=== PATIENT | female | born 1995 | race Caucasian/White ===

== ENCOUNTER 2019-02-11 17:20 | Inpatient (IN) | payer BC ==
[~2019-02-11] VITALS: Ht 172.7 cm; Wt 71.2 kg
[2019-02-11] MEDS ORDERED: FIASP (17:31)
[2019-02-11] MEDS ORDERED: APIDRA SOL100 UNIT/1 SQ (17:31)
[2019-02-11] MEDS ORDERED: NOVOLIN 70/30 110 ML SC (17:32)
[2019-02-11] MEDS ORDERED: LANTUS SOL100 UNIT/1 SC (17:32)
[2019-02-11] MEDS ORDERED: CITRACAL + D E1 EACH PO (17:33)
[2019-02-11] MEDS ORDERED: ESTROGEL50 GM TP (17:33)
[2019-02-11] MEDS ORDERED: VITAMIN D31000 UNIT PO (17:33)
[2019-02-11] MEDS ORDERED: TYLENOL W/CODEI1 TAB PO (17:34)
[2019-02-11] MEDS ORDERED: [UNRECOGNIZED DRUG - OTHER] (17:35)
[2019-02-11] MEDS ORDERED: TYLENOL PM1 TAB PO (17:35)
[2019-02-11] MEDS ORDERED: UNISOM SLEEP AI25 MG PO (17:35)
[2019-02-11 18:44] LABS: BASOPHILS 0.3 % (0-2); EOSINOPHILS 1.6 % (0-7); HEMATOCRIT 38.3 % (36.0-48.0); HEMOGLOBIN 12.5 g/dL (12-16); IMMATURE GRANULOCYTES 0.1 % (0-5); LYMPHOCYTES 14.4 % (15-50); MCH 27.5 pg (26.0-34.0); MCHC 32.6 g/dL (31.0-37.0); MCV 84.4 fL (80.0-100.0); MEAN PLATELET VOLUME 9.2 fL (7.4-10.4); MONOCYTES 4.5 % (2-11); NEUTROPHILS 79.1 % (40-80); PLATELET COUNT 243 10x3/uL (130-400); RBC 4.54 10x6/uL (4.00-5.40); RDW 13.5 % (11.5-14.5); WBC 7.3 10x3/uL (4.8-10.8)
[2019-02-11 18:50] LABS: APPEARANCE CLEAR (CLEAR); BILIRUBIN NEGATIVE (NEGATIVE); COLOR STRAW (YELLOW); GLUCOSE 1000 mg/dL (NEGATIVE); KETONE MODERATE mg/dL (NEGATIVE); NITRITE NEGATIVE (NEGATIVE); PROTEIN NEGATIVE (NEGATIVE); UROBILINOGEN NORMAL (NORMAL)
[2019-02-11 18:51] LABS: BACTERIA FEW /hpf (NONE SEEN); EPITHELIAL CELLS 0-5 /hpf (0-5); RED CELLS - URINE 0-5 /hpf (0-5); WHITE CELLS - URINE RARE /hpf (0-5); YEAST OCC /hpf (NONE SEEN)
[2019-02-11 19:10] LABS: ALBUMIN 3.5 g/dL (3.4-5.0); ALKALINE PHOSPHATASE 141 U/L (46-116); ALT (SGPT) 60 U/L (10-68); AMYLASE - SERUM 17 U/L (25-115); BILIRUBIN - TOTAL 0.67 mg/dL (0.2-1.3); CALC OSMOLALITY 291 mosm/kg (275-300); CALCIUM 9.1 mg/dL (8.5-10.1); CARBON DIOXIDE 23.3 mmol/L (21.0-32.0); CHLORIDE - SERUM 100 mmol/L (98-107); CREATININE - SERUM 0.9 mg/dL (0.6-1.3); LIPASE 61 U/L (73-393); POTASSIUM - SERUM 4.7 mmol/L (3.5-5.1); SODIUM 136 mmol/L (136-145); TROPONIN-I < 0.017 ng/mL (0.000-0.060); UREA NITROGEN 22 mg/dL (7-18); eGFR NON AFRICAN AMERICAN 81 mL/min (90-120)
[2019-02-11 19:12] LABS: GLUCOSE 405 mg/dL (74-106)
[2019-02-11 22:30] VITALS: BP 113/83
--- NOTE | 2019-02-11 22:30 | NUR ---
PT ARRIVED ON UNIT VIA WHEELCHAIR ACCCOMPANIED BY ER STAFF AND FIANCE - REQUESTED BEDSIDE COMMODE - LARGE LIQUID BM NOTED AT THIS TIME. PATIENT CONNECTED TO ICU MONITORS AND ALL ALARMS ARE ON AND OPERATIONAL. PT IN PAIN 10/10 ON NUMERIC PAIN SCALE, BOTH UPPER QUAD OF ABDOMEN, SOFT TO PALPATION, NO DISTENTION OR RIGIDITY. DR. RIDER NOTIFIED OF ADMISSION NEW ORDERS RECEIVED.
[2019-02-11 23:00] VITALS: BP 110/72
[2019-02-11 23:49] VITALS: BP 116/84; BMI 23.0
[2019-02-12] VITALS (21 sets, daily range): BP systolic 102–131; BP diastolic 64–93; Ht 172.7 cm; Wt 71.2 kg
--- NOTE | 2019-02-12 01:53 | NUR ---
PATIENT REQUESTING PAIN MEDICATION AT THIS TIME VSS CPOC SEE EMAR FOR ADMINISTRATION
--- NOTE | 2019-02-12 06:22 | NUR ---
PT RESTING COMFORTABLY INSULIN DRIP INFUSING VSS CPOC
[2019-02-12 08:47] LABS: ANION GAP 17.3 mmol/L (8-16); CALCIUM 9.4 mg/dL (8.5-10.1); CARBON DIOXIDE 23.5 mmol/L (21.0-32.0); MAGNESIUM - SERUM 1.8 mg/dL (1.8-2.4)
[2019-02-12 08:49] LABS: POTASSIUM - SERUM 3.8 mmol/L (3.5-5.1)
--- NOTE | 2019-02-12 09:47 | NUR ---
0700 AWAKE ALERT ORIENTED ASSESSMENT COMPLETE DKA PROTOCOL ONGOING WITH INSULIN GTT INFUSING AT 1.8 UNITS/HOUR AND D5 1/2 ACTIVITY AD FRANKY IN ROOM
--- NOTE | 2019-02-12 10:17 | NUR ---
0730 CBS 153 ADJUSTED INSULIN GTT TO 3.72
--- NOTE | 2019-02-12 10:20 | NUR ---
0830 UP TO BSC INDEPENDENTLY VOIDED AND LIQUID STOOL NOTED CBS 98 ADJUSTED INSULIN GTT TO 1.14UNITS/HR
--- NOTE | 2019-02-12 10:24 | NUR ---
0819 ZOFRAN 4MG IV GIVEN FOR N,V
--- NOTE | 2019-02-12 10:26 | NUR ---
0831 PAIN 12/16 DIALUDID 1MG IV GIVEN
[2019-02-12 12:15] LABS: CALC OSMOLALITY 281 mosm/kg (275-300); CALCIUM 8.5 mg/dL (8.5-10.1); CARBON DIOXIDE 25.3 mmol/L (21.0-32.0); CHLORIDE - SERUM 105 mmol/L (98-107); CREATININE - SERUM 0.8 mg/dL (0.6-1.3); GLUCOSE 134 mg/dL (74-106); MAGNESIUM - SERUM 1.8 mg/dL (1.8-2.4); POTASSIUM - SERUM 4.1 mmol/L (3.5-5.1); SODIUM 141 mmol/L (136-145); UREA NITROGEN 10 mg/dL (7-18); eGFR NON AFRICAN AMERICAN > 90 mL/min (90-120)
--- NOTE | 2019-02-12 12:54 | NUR ---
1030 PAIN LEVEL 01/16 DILAUDID 1MG IV GIVEN
--- NOTE | 2019-02-12 12:54 | NUR ---
[address] RIDER OF AMNION GAP CLOSED AT 14.80 INSTRUCTED TO CONTINUE HOURLY CBS UNTIL SURGEON SEES PATIENT. UPDATED DR OF NO MORE N,V AND 2 DOSES DILAUDID GIVEN THIS AM.
--- NOTE | 2019-02-12 14:46 | NUR ---
9694 DR ROPER AT BEDSIDE FOR EVALUATION MAY GIVE PATIENT ICE CHIPS AND SIPS OF WATER. ORDERED STOOL COLLECTION
--- NOTE | 2019-02-12 15:19 | NUR ---
1500 IN BED RESTING WITH EYES CLOSED
[2019-02-12 16:28] LABS: CALC OSMOLALITY 281 mosm/kg (275-300); CALCIUM 8.3 mg/dL (8.5-10.1); CARBON DIOXIDE 26.1 mmol/L (21.0-32.0); CHLORIDE - SERUM 106 mmol/L (98-107); CREATININE - SERUM 0.7 mg/dL (0.6-1.3); GLUCOSE 118 mg/dL (74-106); MAGNESIUM - SERUM 1.8 mg/dL (1.8-2.4); POTASSIUM - SERUM 3.8 mmol/L (3.5-5.1); SODIUM 142 mmol/L (136-145); UREA NITROGEN 8 mg/dL (7-18); eGFR NON AFRICAN AMERICAN > 90 mL/min (90-120)
--- NOTE | 2019-02-12 17:22 | MORECARE ---
CASE MANAGEMENT DISCHARGE SUMMARY PATIENT: LIAM ELI UNIT: [id number] ADM DATE: 02/11/19 AGE: 23 : [birth year] SEX: F ROOM/BED: D.2306 AUTHOR: TOMAS STRINGER PHYSICIAN: REFERRING PHYSICIAN: SANDRA RIDER MD DATE OF SERVICE: 02/12/19 Discharge Plan Patient Name: LIAM ELI [facility] [facility] 1995 Planned Disposition: Home Anticipated Discharge Date: Discharge Date: Expected LOS: Initial Reviewer: [email or web address] Initial Review Date: 02/12/2019 Generated: 02/12/19 6:22 pm DCPIA - Discharge Planning Initial Assessment Updated by [email or web address]: Radha Lemus on 02/12/19 5:19 pm * Is the patient Alert and Oriented? Yes * How many steps to enter\exit or inside your home? 10-12 * PCP Dr. Davey @ [facility] * Preadmission Environment Home with Family * ADLs Independent * Equipment Glucometer * List name and contact numbers for known caregivers / representatives who currently or will assist patient after discharge: ASTRID [facility] - [phone] * Verbal permission to speak to the caregivers and representatives has been obtained from the patient. N/A * Community resources currently utilized None * Additional services required to return to the preadmission environment? No * Can the patient safely return to the preadmission environment? Yes * Has this patient been hospitalized within the prior 30 days at any hospital? Yes Patient Name: LIAM ELI Page [phone] at 1722 All edits/amendments must be made on the electronic document DICTATION DATE: 02/12/191721 FURNITURE SHAMPOOER: THANIA 02/12/191721 RPT#: [id number] DC DATE: STATUS: ADM IN [facility] [address] [place] [address] END OF REPORT
--- NOTE | 2019-02-12 17:30 | MORECARE ---
CASE MANAGEMENT DISCHARGE SUMMARY PATIENT: LIAM ELI UNIT: [id number] ADM DATE: 02/11/19 AGE: 23 : 94 SEX: F ROOM/BED: D.2306 AUTHOR: MYKEDOC PHYSICIAN: REFERRING PHYSICIAN: SANDRA RIDER MD DATE OF SERVICE: 02/12/19 Discharge Plan Patient Name: LIAM ELI Facility: [facility]:[place] : 1995 Planned Disposition: Home Anticipated Discharge Date: Discharge Date: Expected LOS: Initial Reviewer: [email or web address] Initial Review Date: 02/12/2019 Generated: 02/12/19 6:30 pm Comments DCP- Discharge Planning Updated by [email or web address]: Radha Lemus on 02/12/19 4:[address] Patient Name: LIAM ELI Admission Status: ER Accout number: [id number] Admission Date: 02-11-2019 : 1995 Admission Diagnosis:TYPE 1 DIABETES MELLITUS WITH KETOACIDOSIS WITHOUT COMA Attending: SANDRA RIDER Current LOS: 1 Anticipated DC Date: Planned Disposition: Home Primary Insurance: [employer] OUT OF STATE Discharge Planning Comments: CM met with patient to complete initial dc planning assessment. CM educated patient on the CM role and verbal consent given by patient to complete assessment. Patient lives at home with her significant other where she is independent with her care. At discharge patient plans to return home and feels this is a safe discharge. CM discussed availability of home health, rehab services, and medical equipment. Patient states she has a glucometer and supplies to check blood sugars at home. Patient will have family drive her home upon discharge. Patient denied known discharge needs at this time. CM will continue to follow and will assist as needed with dc plans/needs. Mold Stacker: Radha Lemus DCPIA - Discharge Planning Initial Assessment Updated by [email or web address]: Radha Lemus on 02/12/19 5:19 pm * Is the patient Alert and Oriented? Yes * How many steps to enter\exit or inside your home? 10-12 * PCP Dr. Davey @ [facility] * [facility] * Preadmission Environment Home with Family * ADLs Independent * Equipment Glucometer * List name and contact numbers for known caregivers / representatives who currently or will assist patient after discharge: ASTRID SINCLAIR PARTNER - [phone] * Verbal permission to speak to the caregivers and representatives has been obtained from the patient. N/A * Community resources currently utilized None * Additional services required to return to the preadmission environment? No * Can the patient safely return to the preadmission environment? Yes * Has this patient been hospitalized within the prior 30 days at any hospital? Yes Last DP export: 02/12/19 4:22 pm Patient Name: LIAM ELI Page [phone] at 1730 All edits/amendments must be made on the electronic document DICTATION DATE: 02/12/191729 SHOT BAGGER: THANIA 02/12/191729 RPT#: [id number] DC DATE: STATUS: ADM IN [facility] [address] [place] [address] END OF REPORT
--- NOTE | 2019-02-12 19:00 | NUR ---
PT ASSESSMENT COMPLETED AT THIS TIME, VSS, NO DISTRESS NOTED
--- NOTE | 2019-02-12 21:00 | NUR ---
NO CHANGES NOTED AT THIS TIME, PT WATCHING TV ON HER PHONE. VSS, NO DISTRESS NOTED
--- NOTE | 2019-02-12 23:00 | NUR ---
PT REASSESSMENT COMPLETED AT THIS TIME, NO CHANGES NOTED
[2019-02-13] VITALS (13 sets, daily range): BP systolic 110–142; BP diastolic 61–87
--- NOTE | 2019-02-13 01:00 | NUR ---
NO CHANGES NOTED, VSS, NO DISTRESS NOTED
[2019-02-13 04:18] LABS: BASOPHILS 0 % (0-2); EOSINOPHILS 7.1 % (0-7); HEMATOCRIT 35.6 % (36.0-48.0); HEMOGLOBIN 11.6 g/dL (12-16); IMMATURE GRANULOCYTES 0.3 % (0-5); LYMPHOCYTES 47.4 % (15-50); MCH 27.4 pg (26.0-34.0); MCHC 32.6 g/dL (31.0-37.0); MCV 84.2 fL (80.0-100.0); MEAN PLATELET VOLUME 8.6 fL (7.4-10.4); MONOCYTES 10.8 % (2-11); NEUTROPHILS 34.4 % (40-80); PLATELET COUNT 212 10x3/uL (130-400); RBC 4.23 10x6/uL (4.00-5.40); RDW 13.4 % (11.5-14.5)
[2019-02-13 04:19] LABS: WBC 3.2 10x3/uL (4.8-10.8)
[2019-02-13 04:31] LABS: ALKALINE PHOSPHATASE 125 U/L (46-116); ALT (SGPT) 58 U/L (10-68); BILIRUBIN - TOTAL 0.51 mg/dL (0.2-1.3); CALCIUM 8.1 mg/dL (8.5-10.1); CARBON DIOXIDE 26.2 mmol/L (21.0-32.0); CHLORIDE - SERUM 104 mmol/L (98-107); POTASSIUM - SERUM 3.6 mmol/L (3.5-5.1); PROTEIN - SERUM 6.2 g/dL (6.4-8.2); SODIUM 139 mmol/L (136-145)
[2019-02-13 04:32] LABS: CALC OSMOLALITY 280 mosm/kg (275-300); CREATININE - SERUM 0.5 mg/dL (0.6-1.3); GLUCOSE 204 mg/dL (74-106); UREA NITROGEN 5 mg/dL (7-18); eGFR NON AFRICAN AMERICAN > 90 mL/min (90-120)
--- NOTE | 2019-02-13 05:00 | NUR ---
PT RESTING WITH EYES CLOSED, RESP EVEN NON LABORED. JUNE, NO DISTRESS NOTED.
--- NOTE | 2019-02-13 08:04 | NUR ---
0700 AWAKE ALERT IN BED PLAYING ON PHONE INSULIN INFUSION WITH CBS EVERY HOUR CURRENT RATE 0.3UNITS/HR NS INFUSING AT 100ML/HR TO RIGHT FOREARM IV. SITE SATISFACTORY REMAINS NPO EXCEPT SIPS WATER AND ICE CHIPS. ASSESSMENT COMPLETE
--- NOTE | 2019-02-13 08:08 | NUR ---
0800 C/O PAIN 01/16 DILAUDID 1MG IV GIVEN. REFUSES BATH STATES SHE WANTS TO GO TO SLEEP NOW
--- NOTE | 2019-02-13 13:11 | NUR ---
0900 COLLECTED STOOL SPECIMEN AND SENT TO LAB
--- NOTE | 2019-02-13 13:11 | NUR ---
1100 STOPPED INSULIN GTT PLACED ON SLIDING SCALE
--- NOTE | 2019-02-13 13:12 | NUR ---
1200 CLEAR LIQUID DIET PROVIDED
[2019-02-13 13:50] LABS: CALC OSMOLALITY 284 mosm/kg (275-300); CALCIUM 7.9 mg/dL (8.5-10.1); CHLORIDE - SERUM 105 mmol/L (98-107); CREATININE - SERUM 0.8 mg/dL (0.6-1.3); GLUCOSE 274 mg/dL (74-106); POTASSIUM - SERUM 3.9 mmol/L (3.5-5.1); SODIUM 139 mmol/L (136-145); UREA NITROGEN 5 mg/dL (7-18); eGFR NON AFRICAN AMERICAN > 90 mL/min (90-120)
--- NOTE | 2019-02-13 16:48 | NUR ---
1615 REPORT CALLED TO MED 3
--- NOTE | 2019-02-13 16:48 | NUR ---
2613 TRANSPORTED VIA WHEELCHAIR TO [place] [id number]
--- NOTE | 2019-02-13 18:55 | NUR ---
PATIENT RESTING IN BED AND DENIES NEEDS AT THIS TIME. BED IN LOWEST POSITION AND CALL LIGHT WITHIN REACH. ENCOURAGED THE PATIENT TO CALL IF SHE HAS NEEDS. WILL CONTINUE TO MONITOR.
[2019-02-14 00:17] VITALS: BP 136/90
--- NOTE | 2019-02-14 00:20 | NUR ---
SWELLING AND REDNESS NOTED AT PATIENT'S IV SITE. REMOVED PIV WITH TIP INTACT FROM PATIENT'S RIGHT FA
--- NOTE | 2019-02-14 01:00 | NUR ---
HEDY MATHEWS ATTEMPTED TO GAIN IV ACCESS ON PATIENT
--- NOTE | 2019-02-14 01:30 | NUR ---
HEDY MONSALVE ATTEMPTED TO GAIN IV ACCESS ON PATIENT
--- NOTE | 2019-02-14 01:40 | NUR ---
SPOKE WITH KIMMY, CAROLA IN REGARDS TO PATIENT'S IV ACCESS. KIMMY STATED THAT HE WOULD ASK IF ANYONE WAS ABLE TO COME DOWN.
--- NOTE | 2019-02-14 03:29 | NUR ---
SPOKE WITH LAN SUPPORT SPECIALIST IN REGARDS TO IV ACCESS FOR PATIENT. STATED PARTHA, RN WOULD BE DOWN TO ATTEMPT AN IV ON THE PATIENT
[2019-02-14 04:00] VITALS: BP 122/76
[2019-02-14 06:51] LABS: BASOPHILS 0.6 % (0-2); HEMOGLOBIN 10.7 g/dL (12-16); IMMATURE GRANULOCYTES 0.3 % (0-5); LYMPHOCYTES 47.8 % (15-50); MCH 27.6 pg (26.0-34.0); MCHC 32.4 g/dL (31.0-37.0); MCV 85.1 fL (80.0-100.0); MONOCYTES 8.8 % (2-11); NEUTROPHILS 37.5 % (40-80); PLATELET COUNT 190 10x3/uL (130-400); RBC 3.88 10x6/uL (4.00-5.40); RDW 13.5 % (11.5-14.5); WBC 3.4 10x3/uL (4.8-10.8)
[2019-02-14 07:07] LABS: CALC OSMOLALITY 282 mosm/kg (275-300); CALCIUM 8.4 mg/dL (8.5-10.1); CARBON DIOXIDE 27.4 mmol/L (21.0-32.0); CHLORIDE - SERUM 107 mmol/L (98-107); CREATININE - SERUM 0.6 mg/dL (0.6-1.3); POTASSIUM - SERUM 3.4 mmol/L (3.5-5.1); SODIUM 142 mmol/L (136-145); UREA NITROGEN 4 mg/dL (7-18); eGFR NON AFRICAN AMERICAN > 90 mL/min (90-120)
[2019-02-14 07:08] LABS: GLUCOSE 148 mg/dL (74-106)
[2019-02-14 08:10] VITALS: BP 120/71
--- NOTE | 2019-02-14 08:20 | NUR ---
PT ALERT X 4. BREATH SOUNDS CLEAR BILAT. IV TO LEFT WRIST, PATENT DRESSING CDI. ABDOMEN TENDER NON-DISTENDED AND SOFT. PT REPORTING PAIN OF 8/10, MEDICATED PER ORDERS, WILL MONITOR. BED LOW, CALL LIGHT IN REACH. NO OTHER NEEDS AT THIS TIME.
[2019-02-14 12:11] VITALS: BP 136/80
[2019-02-14 19:51] VITALS: BP 139/87
--- NOTE | 2019-02-14 19:53 | NUR ---
PATIENT RESTING IN BED WITH GUEST AND DENIES NEEDS AT THIS TIME. VSS. BED IN LOWEST POSITION AND CALL LIGHT WITHIN REACH. ENCOURAGED THE PATIENT TO CALL IF SHE HAS NEEDS. WILL CONTINUE TO MONITOR.
[2019-02-14 23:42] VITALS: BP 128/76
[2019-02-15 03:36] VITALS: BP 112/72
[2019-02-15 08:00] VITALS: BP 137/92
--- NOTE | 2019-02-15 09:55 | NUR ---
THE PATIENT APPEARED TO BE SLEEPING BUT EASILY AWOKE WHEN STAFF ENTERED HER ROOM. BED IS IN THE LOW POSITION WITH SIDERAILSX 2 AND CALL LIGHT WITHIN REACH. THE PATIENT WAS EDUCATED ON THE USE OF A CALL LIGHT AND DEMONSTRATES UNDERSTANDING VIA TEACHBACK METHOD. THE PATIENT APPEARS COMFORTABLE WITH NO QUESTIONS OR CONCERNS AT THIS TIME.
[2019-02-15 11:00] VITALS: BP 119/80
--- NOTE | 2019-02-15 12:58 | NUR ---
Nutrition Follow-up: Patient states that she is tolerating diet advancement to full-liquid. States she is allergic to artificial sweeteners. Does not want Glucerna. Diet: Full-liquid PO not recorded Labs reviewed Significant meds: lantus, SSI, MOM +BM Wt: 157# (02/15/19) Continue to ADAT to Diabetic diet. RD available for nutrition support if needed. RD Following
[2019-02-15 16:00] VITALS: BP 131/81
--- NOTE | 2019-02-15 19:55 | NUR ---
PATIENT RESTING IN BED AND DENIES NEEDS AT THIS TIME. REITERATED TO THE PATIENT THAT SHE CANNOT HAVE ANYTHING BY MOUTH AFTER MIDNIGHT AND THAT SHE CANNOT HAVE PAIN MEDICATION AFTER MIDNIGHT. PATIENT VERBALIZED UNDERSTANDING. ENCOURAGED THE PATIENT TO CALL IF SHE HAS NEEDS. WILL CONTINUE TO MONITOR.
[2019-02-15 20:18] VITALS: BP 134/93
[2019-02-16] VITALS: BP 134/87
[2019-02-16 04:00] VITALS: BP 109/76
[2019-02-16 07:15] LABS: BASOPHILS 0.6 % (0-2); EOSINOPHILS 4.5 % (0-7); HEMATOCRIT 31.5 % (36.0-48.0); HEMOGLOBIN 10.3 g/dL (12-16); MCH 27.2 pg (26.0-34.0); MCHC 32.7 g/dL (31.0-37.0); MEAN PLATELET VOLUME 9.5 fL (7.4-10.4); MONOCYTES 9.1 % (2-11); NEUTROPHILS 43.8 % (40-80); PLATELET COUNT 203 10x3/uL (130-400); RBC 3.79 10x6/uL (4.00-5.40); RDW 13.3 % (11.5-14.5); WBC 3.3 10x3/uL (4.8-10.8)
[2019-02-16 07:16] LABS: MCV 83.1 fL (80.0-100.0)
[2019-02-16 07:23] LABS: CALC OSMOLALITY 283 mosm/kg (275-300); CALCIUM 8.2 mg/dL (8.5-10.1); CARBON DIOXIDE 30.2 mmol/L (21.0-32.0); CHLORIDE - SERUM 106 mmol/L (98-107); CREATININE - SERUM 0.6 mg/dL (0.6-1.3); GLUCOSE 138 mg/dL (74-106); POTASSIUM - SERUM 3.4 mmol/L (3.5-5.1); SODIUM 143 mmol/L (136-145); UREA NITROGEN 4 mg/dL (7-18); eGFR NON AFRICAN AMERICAN > 90 mL/min (90-120)
--- NOTE | 2019-02-16 09:30 | NUR ---
PT ALERT X 4. BREATH SOUNDS CLEAR BILAT. ABDOMEN TENDER, NON-DISTENDED. IV TO LEFT WRIST, PATENT, DRESSING CDI. PT REPORTING PAIN OF 7/10 MEDICATED PER ORDERS, WILL MONITOR. BED LOW, CALL LIGHT IN REACH. NO OTHER NEEDS AT THIS TIME.
[2019-02-16] MEDS ORDERED: ZOFRAN4 MG PO (11:42)
--- NOTE | 2019-02-16 15:29 | NUR ---
DISCHARGE PAPERWORK SIGNED, ALL QUESTIONS ANSWERED. IV TO LEFT WRIST DC'D, TIP INTACT. ESCORTED OUT BY WHEELCHAIR.
--- NOTE | 2019-02-17 08:04 | MORECARE ---
CASE MANAGEMENT DISCHARGE SUMMARY PATIENT: LIAM ELI UNIT: [id number] ADM DATE: 02/11/19 AGE: 23 : [birth year] SEX: F ROOM/BED: D.1204 AUTHOR: MYKE,DOC PHYSICIAN: REFERRING PHYSICIAN: SANDRA RIDER MD DATE OF SERVICE: 02/17/19 Discharge Plan Patient Name: LIAM ELI Facility: [facility]:[place] : 1995 Planned Disposition: Home Anticipated Discharge Date: Discharge Date: 02/16/2019 Expected LOS: Initial Reviewer: [email or web address] Initial Review Date: 02/12/2019 Generated: 02/17/19 9:04 am DCP- Discharge Planning Updated by [email or web address]: Radha Lemus on 02/12/19 4:[address] Patient Name: LIAM ELI Admission Status: ER Accout number: [id number] Admission Date: 02-11-2019 : 1995 Admission Diagnosis:TYPE 1 DIABETES MELLITUS WITH KETOACIDOSIS WITHOUT COMA Attending: SANDRA RIDER Current LOS: 1 Anticipated DC Date: Planned Disposition: Home Primary Insurance: [employer] OUT OF STATE Discharge Planning Comments: CM met with patient to complete initial dc planning assessment. CM educated patient on the CM role and verbal consent given by patient to complete assessment. Patient lives at home with her significant other where she is independent with her care. At discharge patient plans to return home and feels this is a safe discharge. CM discussed availability of home health, rehab services, and medical equipment. Patient states she has a glucometer and supplies to check blood sugars at home. Patient will have family drive her home upon discharge. Patient denied known discharge needs at this time. CM will continue to follow and will assist as needed with dc plans/needs. Turbine Inspector: Radha Lemus DCPIA - Discharge Planning Initial Assessment Updated by [email or web address]: Radha Lemus on 02/12/19 5:19 pm * Is the patient Alert and Oriented? Yes * How many steps to enter\exit or inside your home? 10-12 * PCP Dr. Davey @ [facility] * [facility] * Preadmission Environment Home with Family * ADLs Independent * Equipment Glucometer * List name and contact numbers for known caregivers / representatives who currently or will assist patient after discharge: ASTRID SINCLAIR PARTNER - [phone] * Verbal permission to speak to the caregivers and representatives has been obtained from the patient. N/A * Community resources currently utilized None * Additional services required to return to the preadmission environment? No * Can the patient safely return to the preadmission environment? Yes * Has this patient been hospitalized within the prior 30 days at any hospital? Yes Last DP export: 02/12/19 4:30 pm Patient Name: LIAM ELI Page [phone] at 0804 All edits/amendments must be made on the electronic document DICTATION DATE: 02/17/19803 MAT CLEANING MACHINE OPERATOR: THANIA 02/17/19803 RPT#: [id number] DC DATE:02/16/19 STATUS: DIS IN [facility] [address] [place] [address] END OF REPORT
== END 2019-02-16 16:00 | disposition home or self-care (01) | DRG 638 ==
LOC: D.ER 17:20 → D.M3 21:32 → D.ICU 21:32 → D.M3 02-13 16:42
PROVIDERS: Family Medicine; ADMIT Family Medicine; ATTEND Family Medicine
DX: E10.10 Type 1 diabetes mellitus with ketoacidosis without coma (principal); K56.609 Unspecified intestinal obstruction, unspecified as to partial versus complete obstruction; M32.9 Systemic lupus erythematosus, unspecified; E20.9 Hypoparathyroidism, unspecified; R11.2 Nausea with vomiting, unspecified; K52.9 Noninfective gastroenteritis and colitis, unspecified

== ENCOUNTER 2019-02-19 14:13 | Inpatient (IN) | payer BC ==
[~2019-02-19] VITALS: Ht 172.7 cm; Wt 68.0 kg
[~2019-02-19 14:13] MED LIST: APIDRA SOL100 UNIT/1 SQ; CITRACAL + D E1 EACH PO; ESTROGEL50 GM TP; FIASP; LANTUS SOL100 UNIT/1 SC; NOVOLIN 70/30 110 ML SC; TYLENOL PM1 TAB PO; TYLENOL W/CODEI1 TAB PO; UNISOM SLEEP AI25 MG PO; VITAMIN D31000 UNIT PO; ZOFRAN4 MG PO; [UNRECOGNIZED DRUG - OTHER]
[2019-02-19 14:55] LABS: BASOPHILS 0.3 % (0-2); EOSINOPHILS 1.5 % (0-7); HEMATOCRIT 39.6 % (36.0-48.0); HEMOGLOBIN 13.6 g/dL (12-16); IMMATURE GRANULOCYTES 0.4 % (0-5); LYMPHOCYTES 13.7 % (15-50); MCH 28.1 pg (26.0-34.0); MCHC 34.3 g/dL (31.0-37.0); MCV 81.8 fL (80.0-100.0); MEAN PLATELET VOLUME 9.3 fL (7.4-10.4); MONOCYTES 6.3 % (2-11); NEUTROPHILS 77.8 % (40-80); RBC 4.84 10x6/uL (4.00-5.40); RDW 13.2 % (11.5-14.5); WBC 10.8 10x3/uL (4.8-10.8)
[2019-02-19 15:04] LABS: PLATELET COUNT 335 10x3/uL (130-400)
[2019-02-19 15:13] LABS: ALKALINE PHOSPHATASE 192 U/L (46-116); ALT (SGPT) 83 U/L (10-68); AMYLASE - SERUM 17 U/L (25-115); BILIRUBIN - TOTAL 1.17 mg/dL (0.2-1.3); CHLORIDE - SERUM 98 mmol/L (98-107); CREATININE - SERUM 0.9 mg/dL (0.6-1.3); LIPASE 90 U/L (73-393); POTASSIUM - SERUM 4.1 mmol/L (3.5-5.1); PROTEIN - SERUM 8.3 g/dL (6.4-8.2); SODIUM 133 mmol/L (136-145); UREA NITROGEN 14 mg/dL (7-18); eGFR NON AFRICAN AMERICAN 81 mL/min (90-120)
[2019-02-19 15:17] LABS: CALC OSMOLALITY 285 mosm/kg (275-300); GLUCOSE 437 mg/dL (74-106); TROPONIN-I < 0.017 ng/mL (0.000-0.060)
--- NOTE | 2019-02-19 15:22 | NUR ---
NOTIFIED PROVIDERS OF CRITICAL GLUCOSE OF 437. PATIENT STABLE.
[2019-02-19 18:02] LABS: APPEARANCE CLEAR (CLEAR); BILIRUBIN NEGATIVE (NEGATIVE); COLOR STRAW (YELLOW); GLUCOSE 1000 mg/dL (NEGATIVE); KETONE LARGE mg/dL (NEGATIVE); NITRITE NEGATIVE (NEGATIVE); PROTEIN NEGATIVE (NEGATIVE); UROBILINOGEN NORMAL (NORMAL)
[2019-02-19 21:50] VITALS: BP 130/94
--- NOTE | 2019-02-19 23:14 | NUR ---
FSBS 322
--- NOTE | 2019-02-20 01:00 | NUR ---
PT ARRIVED TO THE FLOOR. ALERT AND ORIENTED. NO SIGNS OF DISTRESS. BREATHING EVEN AND UNLABORED. IV SITE RT EXTERNAL JUGULAR. DRESSING CLEAN DRY AND INTACT. NO SIGNS OF INFECTION. SKIN CLEAN DRY AND INTACT. WILL CONTINUE PLAN OF CARE. CALL LIGHT IN REACH. BED LOWERED AND LOCKED.
[2019-02-20 03:34] VITALS: BP 103/56; BMI 22.7
[2019-02-20 04:00] VITALS: BP 102/54
[2019-02-20 04:43] LABS: BASOPHILS 0.4 % (0-2); EOSINOPHILS 5.1 % (0-7); HEMATOCRIT 35.8 % (36.0-48.0); HEMOGLOBIN 11.9 g/dL (12-16); IMMATURE GRANULOCYTES 0.2 % (0-5); LYMPHOCYTES 30.5 % (15-50); MCH 27.7 pg (26.0-34.0); MCHC 33.2 g/dL (31.0-37.0); MCV 83.4 fL (80.0-100.0); MEAN PLATELET VOLUME 9.2 fL (7.4-10.4); NEUTROPHILS 52.8 % (40-80); PLATELET COUNT 279 10x3/uL (130-400); RBC 4.29 10x6/uL (4.00-5.40); RDW 13.7 % (11.5-14.5)
[2019-02-20 04:44] LABS: WBC 5.3 10x3/uL (4.8-10.8)
[2019-02-20 04:52] LABS: CALC OSMOLALITY 288 mosm/kg (275-300); CALCIUM 9.2 mg/dL (8.5-10.1); CARBON DIOXIDE 23.5 mmol/L (21.0-32.0); CHLORIDE - SERUM 102 mmol/L (98-107); CREATININE - SERUM 0.8 mg/dL (0.6-1.3); MAGNESIUM - SERUM 1.8 mg/dL (1.8-2.4); PHOSPHOROUS 4.4 mg/dL (2.5-4.9); POTASSIUM - SERUM 4.5 mmol/L (3.5-5.1); SODIUM 137 mmol/L (136-145); UREA NITROGEN 15 mg/dL (7-18); eGFR NON AFRICAN AMERICAN > 90 mL/min (90-120)
[2019-02-20 04:56] LABS: GLUCOSE 351 mg/dL (74-106)
[2019-02-20 08:53] VITALS: BP 105/71
--- NOTE | 2019-02-20 09:35 | NUR ---
I have reviewed this patient and I concur with the Shift Assessment completed by the Licensed Practical Nurse today this shift.
[2019-02-20 13:54] VITALS: BP 110/65
[2019-02-20 18:25] VITALS: BP 111/71
[2019-02-20 20:00] VITALS: BP 110/75
[2019-02-21] VITALS: BP 105/71
[2019-02-21 06:13] LABS: UDS - AMPHET NEGATIVE QUAL (NEGATIVE); UDS - BARB NEGATIVE QUAL (NEGATIVE); UDS - BENZO NEGATIVE QUAL (NEGATIVE); UDS - COCAINE NEGATIVE QUAL (NEGATIVE); UDS - OPIATE POSITIVE QUAL (NEGATIVE); UDS - PCP NEGATIVE QUAL (NEGATIVE); UDS - THC NEGATIVE QUAL (NEGATIVE)
[2019-02-21 07:30] VITALS: BP 107/69
--- NOTE | 2019-02-21 07:30 | NUR ---
RESTING IN BED WITH EYES CLOSED. OPENED THEM WHEN I ENTERED THE ROOM. DENIES ANY NEEDS AT PRESENT TIME. PAIN LEVEL IS AT 5 RIGHT NOW BUT NOT YET TIME FOR PAIN MED. STATES SHE DOES WANT IT WHEN IT IS DUE. ASSESSMENT COMPLETED AND WILL CONTINUE POC. IV PATENT TO RIGHT EXT JUGULAR WITHOUT REDNESS OR EDEMA. NO REQUESTS VOICED.
[2019-02-21 11:30] VITALS: BP 108/70
--- NOTE | 2019-02-21 13:23 | NUR ---
I have reviewed this patient and I concur with the Shift Assessment completed by the Licensed Practical Nurse today this shift.
[2019-02-21 15:30] VITALS: BP 118/83
--- NOTE | 2019-02-21 19:45 | NUR ---
PT SITTING UP IN BED ALERT AND ORIENTED X4. PT COMPLAINS OF 7/10 ABDOMINAL PAIN. PRN MEDICATION GIVEN. VITALS STABLE. BED LOW CALL LIGHT WITHIN REACH. WILL CONTINUE TO MONITOR.
[2019-02-21 20:00] VITALS: BP 118/76
--- NOTE | 2019-02-21 23:37 | NUR ---
PT COMPLAINS OF PAIN IN ABDOMEN 01/16. PRN PAIN MEDS GIVEN WELL A CUP OF CHICKEN BROTH AND 2 APPLE JUICES. NO S/S OF DISTRESS. VITALS STABLE AT THIS TIME. BED LOW CALL LIGHT WITHIN REACH. WILL CONTINUE TO MONITOR.
[2019-02-22] VITALS: BP 120/76
--- NOTE | 2019-02-22 04:05 | NUR ---
PT IN BED ALERT AND ORIENTED WATCHING MOVIE ON LAPTOP. NO S/S OF DISTRESS AT THIS TIME. BED LOW CALL LIGHT WITHIN REACH. WILL CONTINUE TO MONITOR.
[2019-02-22 04:30] VITALS: BP 113/79
[2019-02-22 04:41] LABS: BASOPHILS 0.6 % (0-2); HEMATOCRIT 38.5 % (36.0-48.0); HEMOGLOBIN 12.9 g/dL (12-16); IMMATURE GRANULOCYTES 0.6 % (0-5); LYMPHOCYTES 43.8 % (15-50); MCH 27.3 pg (26.0-34.0); MCHC 33.5 g/dL (31.0-37.0); MCV 81.6 fL (80.0-100.0); PLATELET COUNT 301 10x3/uL (130-400); RBC 4.72 10x6/uL (4.00-5.40)
[2019-02-22 04:50] LABS: CALCIUM 8.7 mg/dL (8.5-10.1); CARBON DIOXIDE 26.4 mmol/L (21.0-32.0); CHLORIDE - SERUM 103 mmol/L (98-107); CREATININE - SERUM 0.8 mg/dL (0.6-1.3); SODIUM 141 mmol/L (136-145); eGFR NON AFRICAN AMERICAN > 90 mL/min (90-120)
[2019-02-22 04:54] LABS: CALC OSMOLALITY 281 mosm/kg (275-300); GLUCOSE 159 mg/dL (74-106); POTASSIUM - SERUM 3.4 mmol/L (3.5-5.1); UREA NITROGEN 8 mg/dL (7-18)
--- NOTE | 2019-02-22 06:42 | NUR ---
I have reviewed this patient and I concur with the Shift Assessment completed by the Licensed Practical Nurse today this shift.
--- NOTE | 2019-02-22 07:37 | NUR ---
GAVE 0.5MG OF DILAUDID FOR PAIN LEVEL OF 7/10. PT IN BED, WATCHING SOMETHING ON HER LAPTOP, DENIES ANY OTHER NEEDS AT THIS TIME. NS INFUSING AT KVO TO RT EJ. CALL LIGHT IN REACH, NAD NOTED, WILL CONTINUE TO MONITOR.
[2019-02-22 08:30] VITALS: BP 111/70
--- NOTE | 2019-02-22 09:58 | NUR ---
BLOOD SUGAR OF 134, 30UNITS OF LANTUS GIVEN PER ORDERS. PROFESSOR OF PSYCHOLOGY AT BEDSIDE, PT DENIES ANY NEEDS AT THIS TIME, CALL LIGHT IN REACH, NAD NOTED, WILL CONTINUE TO MONITOR.
--- NOTE | 2019-02-22 11:38 | NUR ---
GAVE 0.5MG OF DILAUDID FOR PAIN LEVEL OF 6/10. PT DENIES ANY OTHER NEEDS AT THIS TIME. CALL LIGHT IN REACH, NAD NOTED, WILL CONITNUE TO MONITOR.
[2019-02-22 12:03] VITALS: Ht 172.7 cm; Wt 68.0 kg
[2019-02-22 13:04] VITALS: BP 107/74
[2019-02-22] MEDS ORDERED: FLAGYL500 MG PO (14:37)
[2019-02-22] MEDS ORDERED: LEVOFLOXACIN500 MG PO (14:37)
--- NOTE | 2019-02-22 16:12 | MORECARE ---
CASE MANAGEMENT DISCHARGE SUMMARY PATIENT: LIAM ELI UNIT: [id number] ADM DATE: 02/19/19 AGE: 23 : [birth year] SEX: F ROOM/BED: D.2108 AUTHOR: TOMAS STRINGER PHYSICIAN: REFERRING PHYSICIAN: NIKITA WILHELM MD DATE OF SERVICE: 02/22/19 Discharge Plan Patient Name: LIAM ELI Facility: [facility]:[place] : 1995 Planned Disposition: Home Anticipated Discharge Date: 02/22/19 Discharge Date: Expected LOS: 3 Initial Reviewer: [email or web address] Initial Review Date: 02/22/2019 Generated: 02/22/19 5:12 pm DCPIA - Discharge Planning Initial Assessment Updated by [email or web address]: John Smith on 02/22/19 4:07 pm * Is the patient Alert and Oriented? Yes * How many steps to enter\exit or inside your home? 12 * PCP DR. SOLER AT [facility] * [facility] * Preadmission Environment Home with Family * ADLs Independent * Equipment Glucometer * Other Equipment NO MEDICAL EQUIPMENT PROVIDER PREFERENCE * List name and contact numbers for known caregivers / representatives who currently or will assist patient after discharge: ASTRID ESCUDERO, LIFE PARTNER, * Verbal permission to speak to the caregivers and representatives has been obtained from the patient. Yes * Community resources currently utilized None * Please name any agencies selected above. NONE * Additional services required to return to the preadmission environment? No * Can the patient safely return to the preadmission environment? Yes * Has this patient been hospitalized within the prior 30 days at any hospital? No Patient Name: LIAM ELI Page [phone] at 1612 All edits/amendments must be made on the electronic document DICTATION DATE: 02/22/19 161 DIRECTOR OF PROFESSIONAL SERVICES: THANIA 02/22/19 161 RPT#: [id number] DC DATE: STATUS: ADM IN [facility] [address] [place] [address] END OF REPORT
--- NOTE | 2019-02-22 16:28 | NUR ---
PROVIDED VERBAL AND WRITTEN DISCHARGE TEACHING, PT VERBAILZED UNDERSTANDING REGARDING TEACHING. D/C RT EJ IV WITH CATHETER TIP INTACT. PT LEFT UNIT VIA WHEELCHAIR, WITH ALL BELONGINGS, ACCOMPANIED BY MALE FRIEND. NAD NOTED.
--- NOTE | 2019-02-22 16:32 | MORECARE ---
CASE MANAGEMENT DISCHARGE SUMMARY PATIENT: LIAM ELI UNIT: [id number] ADM DATE: 02/19/19 AGE: 23 : [birth year] SEX: F ROOM/BED: D.2107 AUTHOR: MYKE,DOC PHYSICIAN: REFERRING PHYSICIAN: NIKITA WILHELM MD DATE OF SERVICE: 02/22/19 Discharge Plan Patient Name: LIAM ELI Facility: [facility]:[place] : 1995 Planned Disposition: Home Anticipated Discharge Date: 02/22/19 Discharge Date: 02/22/2019 Expected LOS: 3 Initial Reviewer: [email or web address] Initial Review Date: 02/22/2019 Generated: 02/22/19 5:32 pm Comments DCP- Discharge Planning Updated by [email or web address]: John Smith on 02/22/19 3:[address] Patient Name: LIAM ELI Admission Status: ER Accout number: [id number] Admission Date: 02-19-2019 : 1995 Admission Diagnosis: Attending: NIKITA WILHELM Current LOS: 3 Anticipated DC Date: 02-22-2019 Planned Disposition: Home Primary Insurance: [employer] OUT OF STATE Discharge Planning Comments: CM MET WITH PT AND SIGNFICANT OTHER IN ROOM TO DISCUSS DISCHARGE PLANNING AND NEEDS. LIAM ELI provided verbal consent to discuss current and ongoing needs with/in the presence of: SIGNFICANT OTHERASTRID. :PT REPORTS LIVING AT HOME INDEPENDENTLY WITH HER SIGNFICANT OTHER. PT HAS GLUCOMETER AND NO MEDICAL EQUIPMENT PROVIDER PREFERENCE. PT HAS NO OUTSIDE SERVICES ASSISTING IN THE HOME. CM DISCUSSED AVAILABILITY OF HOME HEALTH, REHAB SERVICES AND MEDICAL EQUIPMENT. PT DENIES DISCHARGE NEEDS, REPORTS HER SIGNIFICANT OTHER IS HERE AND WILL PICK HER UP FOR DISCHARGE HOME. Medical Program Specialist: John Smith DCPIA - Discharge Planning Initial Assessment Updated by [email or web address]: John Smith on 02/22/19 4:07 pm * Is the patient Alert and Oriented? Yes * How many steps to enter\exit or inside your home? 12 * PCP DR. SOLER AT [facility] * [facility] * Preadmission Environment Home with Family * ADLs Independent * Equipment Glucometer * Other Equipment NO MEDICAL EQUIPMENT PROVIDER PREFERENCE * List name and contact numbers for known caregivers / representatives who currently or will assist patient after discharge: ASTRID ESCUDERO, LIFE PARTNER, * Verbal permission to speak to the caregivers and representatives has been obtained from the patient. Yes * Community resources currently utilized None * Please name any agencies selected above. NONE * Additional services required to return to the preadmission environment? No * Can the patient safely return to the preadmission environment? Yes * Has this patient been hospitalized within the prior 30 days at any hospital? No Last DP export: 02/22/19 3:12 p Patient Name: LIAM ELI Page [phone] at 1632 All edits/amendments must be made on the electronic document DICTATION DATE: 02/22/191631 OPTOMETRIC TECH: THANIA 02/22/191631 RPT#: [id number] DC DATE:02/22/19 STATUS: DIS IN [facility] [address] [place] [address] END OF REPORT
== END 2019-02-22 16:29 | disposition home or self-care (01) | DRG 74 ==
LOC: D.ER 14:13 → D.M2 23:40
PROVIDERS: Family Medicine; ADMIT Internal Medicine Nephrology; ATTEND Internal Medicine Nephrology
DX: E10.43 Type 1 diabetes mellitus with diabetic autonomic (poly)neuropathy (principal); K52.9 Noninfective gastroenteritis and colitis, unspecified; K31.84 Gastroparesis; M32.9 Systemic lupus erythematosus, unspecified; R16.1 Splenomegaly, not elsewhere classified; G43.909 Migraine, unspecified, not intractable, without status migrainosus; E31.0 Autoimmune polyglandular failure

== ENCOUNTER 2019-03-30 12:14 | Emergency (ER) | payer BC ==
[~2019-03-30] VITALS: Ht 172.7 cm; Wt 68.2 kg
[~2019-03-30 12:14] MED LIST changes: +FLAGYL500 MG PO; +LEVOFLOXACIN500 MG PO
[2019-03-30 12:21] VITALS: Ht 172.7 cm; Wt 68.2 kg
[2019-03-30] MEDS ORDERED: MELATONIN10 M1 PO (12:25)
[2019-03-30] MEDS ORDERED: TRAZODONE HCL150 MG PO (12:25)
[2019-03-30 13:12] LABS: APPEARANCE CLEAR (CLEAR); BILIRUBIN NEGATIVE (NEGATIVE); COLOR YELLOW (YELLOW); GLUCOSE NEGATIVE (NEGATIVE); KETONE NEGATIVE (NEGATIVE); NITRITE NEGATIVE (NEGATIVE); PROTEIN NEGATIVE (NEGATIVE); SPECIFIC GRAVITY 1.015 (1.005-1.020); UROBILINOGEN NORMAL (NORMAL)
[2019-03-30 13:20] LABS: BACTERIA FEW /hpf (NEGATIVE); EPITHELIAL CELLS 0-5 /hpf (0-5); RED CELLS - URINE RARE /hpf (0-5); WHITE CELLS - URINE 0-5 /hpf (NEGATIVE)
[2019-03-30 13:21] LABS: MUCUS <1+ /lpf (NONE SEEN)
[2019-03-30 13:28] LABS: CALC OSMOLALITY 275 mosm/kg (275-300); CALCIUM 9.4 mg/dL (8.5-10.1); CARBON DIOXIDE 21.4 mmol/L (21.0-32.0); CHLORIDE - SERUM 102 mmol/L (98-107); CREATININE - SERUM 0.9 mg/dL (0.6-1.3); GLUCOSE 124 mg/dL (74-106); POTASSIUM - SERUM 3.7 mmol/L (3.5-5.1); SODIUM 137 mmol/L (136-145); UREA NITROGEN 15 mg/dL (7-18); eGFR NON AFRICAN AMERICAN 81 mL/min (90-120)
[2019-03-30 13:30] LABS: BASOPHILS 0.3 % (0-2); EOSINOPHILS 1.4 % (0-7); HEMATOCRIT 39.1 % (36.0-48.0); HEMOGLOBIN 12.6 g/dL (12-16); IMMATURE GRANULOCYTES 0.2 % (0-5); LYMPHOCYTES 18.6 % (15-50); MCH 27.8 pg (26.0-34.0); MCHC 32.2 g/dL (31.0-37.0); MCV 86.1 fL (80.0-100.0); MEAN PLATELET VOLUME 9.1 fL (7.4-10.4); MONOCYTES 4.2 % (2-11); NEUTROPHILS 75.3 % (40-80); PLATELET COUNT 297 10x3/uL (130-400); RBC 4.54 10x6/uL (4.00-5.40); RDW 12.9 % (11.5-14.5); WBC 6.2 10x3/uL (4.8-10.8)
[2019-03-30 13:32] LABS: KETONE - SERUM NEGATIVE (NEGATIVE)
[2019-03-30 13:34] LABS: ALBUMIN 3.5 g/dL (3.4-5.0); ALKALINE PHOSPHATASE 140 U/L (46-116); ALT (SGPT) 45 U/L (10-68); BILIRUBIN - TOTAL 0.45 mg/dL (0.2-1.3); MAGNESIUM - SERUM 1.6 mg/dL (1.8-2.4); PROTEIN - SERUM 7.6 g/dL (6.4-8.2)
[2019-03-30] MEDS ORDERED: TALWIN NX1 TAB PO (14:06)
[2019-03-30] MEDS ORDERED: ZOFRAN ODT4 MG/UDTAB PO (14:06)
[2019-03-30 15:12] VITALS: BP 116/77
== END 2019-03-30 15:39 | disposition home or self-care (01) ==
LOC: D.ER 12:14
PROVIDERS: Family Medicine
DX: E11.65 Type 2 diabetes mellitus with hyperglycemia (principal); E86.0 Dehydration

== ENCOUNTER 2019-05-30 14:38 | Emergency (ER) | payer BC ==
[~2019-05-30] VITALS: Ht 172.7 cm; Wt 68.2 kg
[~2019-05-30 14:38] MED LIST changes: +MELATONIN10 M1 PO; +TALWIN NX1 TAB PO; +TRAZODONE HCL150 MG PO; +ZOFRAN ODT4 MG/UDTAB PO
[2019-05-30 14:55] VITALS: Ht 172.7 cm; Wt 68.2 kg
[2019-05-30 15:45] LABS: APPEARANCE CLEAR (CLEAR); BILIRUBIN NEGATIVE (NEGATIVE); COLOR YELLOW (YELLOW); GLUCOSE 50 mg/dL (NEGATIVE); KETONE SMALL mg/dL (NEGATIVE); NITRITE NEGATIVE (NEGATIVE); PROTEIN 1+ mg/dL (NEGATIVE); SPECIFIC GRAVITY 1.025 (1.005-1.020); UROBILINOGEN NORMAL (NORMAL)
[2019-05-30 15:46] LABS: BACTERIA FEW /hpf (NEGATIVE); EPITHELIAL CELLS 0-5 /hpf (0-5); MUCUS >1+ /lpf (NONE SEEN); RED CELLS - URINE NONE SEEN /hpf (0-5); WHITE CELLS - URINE 0-5 /hpf (NEGATIVE)
[2019-05-30 16:34] LABS: BASOPHILS 0.3 % (0-2); HEMATOCRIT 36.2 % (36.0-48.0); HEMOGLOBIN 11.9 g/dL (12-16); IMMATURE GRANULOCYTES 0.3 % (0-5); LYMPHOCYTES 26.6 % (15-50); MCH 28.3 pg (26.0-34.0); MCHC 32.9 g/dL (31.0-37.0); MCV 86.2 fL (80.0-100.0); MEAN PLATELET VOLUME 8.9 fL (7.4-10.4); MONOCYTES 6.6 % (2-11); NEUTROPHILS 65.2 % (40-80); PLATELET COUNT 266 10x3/uL (130-400); RDW 13.9 % (11.5-14.5); WBC 5.9 10x3/uL (4.8-10.8)
[2019-05-30 16:40] LABS: KETONE - SERUM SMALL mg/dL (NEGATIVE)
[2019-05-30 16:44] LABS: CALC OSMOLALITY 288 mosm/kg (275-300); CALCIUM 9.3 mg/dL (8.5-10.1); CARBON DIOXIDE 19.5 mmol/L (21.0-32.0); CHLORIDE - SERUM 101 mmol/L (98-107); CREATININE - SERUM 0.8 mg/dL (0.6-1.3); GLUCOSE 357 mg/dL (74-106); POTASSIUM - SERUM 4.4 mmol/L (3.5-5.1); SODIUM 135 mmol/L (136-145); UREA NITROGEN 27 mg/dL (7-18); eGFR NON AFRICAN AMERICAN > 90 mL/min (90-120)
[2019-05-30 16:47] LABS: HCG URINE NEGATIVE (NEGATIVE)
[2019-05-30 16:50] LABS: ALBUMIN 3.3 g/dL (3.4-5.0); ALKALINE PHOSPHATASE 123 U/L (46-116); ALT (SGPT) 35 U/L (10-68); BILIRUBIN - TOTAL 0.56 mg/dL (0.2-1.3); PROTEIN - SERUM 6.7 g/dL (6.4-8.2)
[2019-05-30 20:19] LABS: CREATINE KINASE 40 UL (21-215); MAGNESIUM - SERUM 1.8 mg/dL (1.8-2.4)
[2019-05-30 20:23] LABS: TROPONIN-I < 0.017 ng/mL (0.000-0.060)
[2019-05-30] MEDS ORDERED: BENADRYL25 MG PO (20:26)
[2019-05-30 22:28] LABS: AMYLASE - SERUM 9 U/L (25-115)
[2019-05-30 22:36] LABS: LIPASE 37 U/L (73-393)
[2019-05-30] MEDS ORDERED: HYDROCODON-ACE1 EAC7 PO (22:59)
[2019-05-31 00:36] VITALS: BP 107/51
== END 2019-05-31 00:36 | disposition home or self-care (01) ==
LOC: D.ER 14:38
PROVIDERS: Emergency Medicine; Family Medicine
DX: E86.0 Dehydration (principal); R00.0 Tachycardia, unspecified; E11.65 Type 2 diabetes mellitus with hyperglycemia

== ENCOUNTER → 2019-06-08 09:05 | Outpatient (CLI) | payer BC ==
[2019-05-30 14:55] VITALS: BMI 22.8
[~2019-06-08 09:05] MED LIST changes: +BENADRYL25 MG PO; +HYDROCODON-ACE1 EAC7 PO
[2019-06-08 09:53] LABS: AMYLASE - SERUM 18 U/L (25-115); LIPASE 84 U/L (73-393)
== END | disposition home or self-care (01) ==
LOC: D.NM 08:30
PROVIDERS: ATTEND Internal Medicine Gastroenterology
DX: R11.2 Nausea with vomiting, unspecified (principal); R63.0 Anorexia; R10.817 Generalized abdominal tenderness

== ENCOUNTER 2019-11-05 16:37 | Observation (INO) | payer BC ==
[~2019-11-05] VITALS: Ht 172.7 cm; Wt 71.7 kg
--- NOTE | 2019-11-05 17:11 | NUR ---
FSBS= "HIGH" DR ALMARAZ NOTIFIED
[2019-11-05 17:32] LABS: BASOPHILS 0.3 % (0-2); EOSINOPHILS 1.6 % (0-7); HEMATOCRIT 41.3 % (36.0-48.0); HEMOGLOBIN 12.7 g/dL (12-16); IMMATURE GRANULOCYTES 0.3 % (0-5); LYMPHOCYTES 22.2 % (15-50); MCHC 30.8 g/dL (31.0-37.0); MCV 87.7 fL (80.0-100.0); MEAN PLATELET VOLUME 9.3 fL (7.4-10.4); MONOCYTES 4.9 % (2-11); NEUTROPHILS 70.7 % (40-80); PLATELET COUNT 301 10x3/uL (130-400); RBC 4.71 10x6/uL (4.00-5.40); RDW 14.9 % (11.5-14.5); WBC 6.1 10x3/uL (4.8-10.8)
[2019-11-05 17:47] LABS: ALBUMIN 3.4 g/dL (3.4-5.0); ANION GAP 17.4 mmol/L (8-16); BILIRUBIN - TOTAL 0.5 mg/dL (0.2-1.3); CARBON DIOXIDE 23.6 mmol/L (21.0-32.0); CREATININE - SERUM 1.2 mg/dL (0.6-1.3); MAGNESIUM - SERUM 1.9 mg/dL (1.8-2.4); PROTEIN - SERUM 7.4 g/dL (6.4-8.2)
[2019-11-05 19:04] VITALS: BP 119/72
--- NOTE | 2019-11-05 19:16 | NUR ---
BS REPORT TO SHAWN ANTONIO
--- NOTE | 2019-11-05 20:06 | NUR ---
FSBS 335 DR LONGORIA NOTIFIED.
[2019-11-05 21:11] LABS: HCG URINE NEGATIVE (NEGATIVE)
[2019-11-05 21:13] LABS: BILIRUBIN NEGATIVE (NEGATIVE); GLUCOSE 1000 mg/dL (NEGATIVE); KETONE MODERATE mg/dL (NEGATIVE); NITRITE NEGATIVE (NEGATIVE); UROBILINOGEN NORMAL (NORMAL)
--- NOTE | 2019-11-05 21:45 | NUR ---
ADMIT TO ROOM 211 FROM ER. ALERT/ORIENTED AND AMBULATORY. ADMISSION ASSESSMENT AND HISTORY COMPLETED. HOME MEDS REVIEWED. IV TO RIGHT A/C IS ONLY HALF IN AND HAS ISSUES. D/C'D IV AND RESITED 22G TO RIGHT INNER WRIST WITH IVF INFUSING AT 125ML/HR.
--- NOTE | 2019-11-05 22:30 | NUR ---
MEDICATED WITH MORPHINE IV AND ZOFRAN IV FOR ABDOMINAL PAIN AND GENERALIZED NAUSEA. PT RESTING IN BED DRAWING. CALL LIGHT IN REACH. CPOC.
--- NOTE | 2019-11-05 23:52 | NUR ---
IV TO RIGHT A/C NOT PATENT. REMOVED. RESITED 22G TO RIGHT INNER WRIST AND IVF NOW AT 125ML/HR PER JED PAUL APN.
[2019-11-06 02:30] VITALS: BP 122/62; BMI 24.0
--- NOTE | 2019-11-06 03:36 | NUR ---
PT C/O ABDOMINAL PAIN. MEDICATED WITH IV ZOFRAN AND MORPHINE FOR PAIN 12/16.
[2019-11-06 04:30] VITALS: BP 126/62
--- NOTE | 2019-11-06 04:39 | NUR ---
FSBS 77 PER HOSPITAL ACCUCHECK AND 83 PER HER CGM. GIVEN 2% MILK X 2 CARTONS AT PT REQUEST TO MAKE SURE IT DOES NOT LOWER ANYMORE.
[2019-11-06 04:48] LABS: BASOPHILS 0.3 % (0-2); EOSINOPHILS 3.9 % (0-7); HEMATOCRIT 38.9 % (36.0-48.0); HEMOGLOBIN 12.3 g/dL (12-16); IMMATURE GRANULOCYTES 0.5 % (0-5); LYMPHOCYTES 34.6 % (15-50); MCH 26.9 pg (26.0-34.0); MCHC 31.6 g/dL (31.0-37.0); MEAN PLATELET VOLUME 9.3 fL (7.4-10.4); MONOCYTES 7.5 % (2-11); NEUTROPHILS 53.2 % (40-80); PLATELET COUNT 324 10x3/uL (130-400); RBC 4.58 10x6/uL (4.00-5.40); WBC 6.4 10x3/uL (4.8-10.8)
[2019-11-06 05:02] LABS: MCV 84.9 fL (80.0-100.0)
[2019-11-06 05:08] LABS: ALBUMIN 3.1 g/dL (3.4-5.0); ALKALINE PHOSPHATASE 134 U/L (30-120); ALT (SGPT) 37 U/L (10-68); BILIRUBIN - TOTAL 0.68 mg/dL (0.2-1.3); CALCIUM 8.9 mg/dL (8.5-10.1); CARBON DIOXIDE 24.5 mmol/L (21.0-32.0); CHLORIDE - SERUM 104 mmol/L (98-107); MAGNESIUM - SERUM 1.9 mg/dL (1.8-2.4); SODIUM 136 mmol/L (136-145)
[2019-11-06 05:12] LABS: CALC OSMOLALITY 270 mosm/kg (275-300); CREATININE - SERUM 0.8 mg/dL (0.6-1.3); GLUCOSE 71 mg/dL (74-106); POTASSIUM - SERUM 3.6 mmol/L (3.5-5.1); UREA NITROGEN 15 mg/dL (7-18); eGFR NON AFRICAN AMERICAN > 90 mL/min (90-120)
--- NOTE | 2019-11-06 08:56 | NUR ---
BLOOD SUGAR OF 320, 12UNITS GIVEN PER S/S. PT DENIES ANY NEEDS AT THIS TIME. CALL LIGHT IN REACH, NAD NOTED,W ILL CONTINUE TO MONITOR.
[2019-11-06 09:42] VITALS: Ht 172.7 cm; Wt 71.7 kg
[2019-11-06 10:14] VITALS: BP 129/78
[2019-11-06 13:30] LABS: UDS - AMPHET NEGATIVE QUAL (NEGATIVE); UDS - BARB NEGATIVE QUAL (NEGATIVE); UDS - BENZO NEGATIVE QUAL (NEGATIVE); UDS - COCAINE NEGATIVE QUAL (NEGATIVE); UDS - OPIATE POSITIVE QUAL (NEGATIVE); UDS - PCP NEGATIVE QUAL (NEGATIVE); UDS - THC NEGATIVE QUAL (NEGATIVE)
[2019-11-06] MEDS ORDERED: TYLENOL W/CODEI1 TAB PO (14:04)
--- NOTE | 2019-11-06 15:16 | NUR ---
PROVIDED VERBAL AND WRITTEN DISCHARGE TEACHING TO PT, WHO VERBALIZED UNDERSTANDING REGARDING TEACHING. D/C RT WRIST IV WITH CATHETER TIP INTACT. PT WAITING ON RIDE, WILL NOTIFY NURSE WHEN READY FOR WHEELCHAIR.
--- NOTE | 2019-11-06 15:41 | NUR ---
PT LEFT UNIT VIA WHEELCHAIR, WITH ALL BELONGINGS, NAD NOTED.
--- NOTE | 2019-11-08 16:33 | MORECARE ---
CASE MANAGEMENT DISCHARGE SUMMARY PATIENT: LIAM ELI UNIT: [id number] ADM DATE: 11/05/19 AGE: 24 : [birth year] SEX: F ROOM/BED: D.2116 AUTHOR: TOMAS STRINGER PHYSICIAN: REFERRING PHYSICIAN: KIMMY RITCHIE MD DATE OF SERVICE: 11/08/19 Discharge Plan Patient Name: LIAM ELI Facility: [facility]:[place] : 1995 Planned Disposition: Anticipated Discharge Date: Discharge Date: 11/06/2019 Expected LOS: 0 Initial Reviewer: [email or web address] Initial Review Date: 11/08/2019 Generated: 11/08/19 5:32 pm Patient Name: LIAM ELI Page [phone] at 1633 All edits/amendments must be made on the electronic document DICTATION DATE: 11/08/19 1632 PAPER COLORER: THANIA 11/08/19 1632 RPT#: [id number] DC DATE:11/06/19 STATUS: DIS IN [facility] [address] [place] [place] [address] END OF REPORT
== END 2019-11-06 15:43 | disposition home or self-care (01) ==
LOC: D.ER 16:37 → OBSVTIME 20:42 → D.M2 20:42
PROVIDERS: Family Medicine; ADMIT Emergency Medicine; ATTEND Emergency Medicine
DX: E10.65 Type 1 diabetes mellitus with hyperglycemia (principal); M32.9 Systemic lupus erythematosus, unspecified; I73.00 Raynaud's syndrome without gangrene; R91.1 Solitary pulmonary nodule

== ENCOUNTER 2020-03-27 12:44 | Emergency (ER) | payer BC ==
[~2020-03-27] VITALS: Ht 172.7 cm; Wt 70.5 kg
[2020-03-27 13:01] VITALS: Ht 172.7 cm; Wt 70.5 kg
[2020-03-27 13:33] LABS: BASOPHILS 0.4 % (0-2); HEMATOCRIT 42.5 % (36.0-48.0); HEMOGLOBIN 14.1 g/dL (12-16); IMMATURE GRANULOCYTES 0.1 % (0-5); LYMPHOCYTES 24.1 % (15-50); MCH 28.8 pg (26.0-34.0); MCHC 33.2 g/dL (31.0-37.0); MCV 86.9 fL (80.0-100.0); MONOCYTES 3.8 % (2-11); NEUTROPHILS 69.6 % (40-80); PLATELET COUNT 282 10x3/uL (130-400); RBC 4.89 10x6/uL (4.00-5.40); RDW 12.8 % (11.5-14.5); WBC 7.5 10x3/uL (4.8-10.8)
[2020-03-27 13:45] LABS: BILIRUBIN NEGATIVE (NEGATIVE); KETONE SMALL mg/dL (NEGATIVE); NITRITE NEGATIVE (NEGATIVE); UROBILINOGEN NORMAL mg/dL (< 2)
[2020-03-27 13:49] LABS: CALC OSMOLALITY 275 mosm/kg (275-300); CALCIUM 10.1 mg/dL (8.5-10.1); CARBON DIOXIDE 22.2 mmol/L (21.0-32.0); CHLORIDE - SERUM 100 mmol/L (98-107); CREATININE - SERUM 0.9 mg/dL (0.6-1.3); GLUCOSE 141 mg/dL (74-106); POTASSIUM - SERUM 4.4 mmol/L (3.5-5.1); SODIUM 136 mmol/L (136-145); UREA NITROGEN 19 mg/dL (7-18); eGFR NON AFRICAN AMERICAN 81 mL/min (90-120)
[2020-03-27 13:54] LABS: ALBUMIN 3.5 g/dL (3.4-5.0); ALKALINE PHOSPHATASE 168 U/L (30-120); ALT (SGPT) 51 U/L (10-68); BILIRUBIN - TOTAL 0.73 mg/dL (0.2-1.3); MAGNESIUM - SERUM 1.9 mg/dL (1.8-2.4); PROTEIN - SERUM 7.7 g/dL (6.4-8.2)
[2020-03-27] MEDS ORDERED: ZOFRAN ODT4 MG/UDTAB PO (15:33)
[2020-03-27 16:15] VITALS: BP 90/54
== END 2020-03-27 16:24 | disposition home or self-care (01) ==
LOC: D.ER 12:44
PROVIDERS: Emergency Medicine
DX: R11.2 Nausea with vomiting, unspecified (principal); R10.9 Unspecified abdominal pain; E11.9 Type 2 diabetes mellitus without complications; Z79.4 Long term (current) use of insulin

== ENCOUNTER 2020-09-19 13:44 | Emergency (ER) | payer BC ==
[~2020-09-19] VITALS: Ht 172.7 cm; Wt 71.4 kg
[~2020-09-19 13:44] MED LIST changes: +BACLOFEN10 MG PO; +HYDROCODON-ACE1 EA10 PO; +HYDROXYCHLOROQ200 MG PO; +NOVOLOG100 UNIT/1
[2020-09-19 13:59] VITALS: Ht 172.7 cm; Wt 71.4 kg
[2020-09-19] MEDS ORDERED: TRAZODONE HCL100 MG PO (14:05)
[2020-09-19] MEDS ORDERED: NOVOLOG100 UNIT/1 SC (14:06)
[2020-09-19] MEDS ORDERED: HYDROCODON-ACE1 EA10 PO (14:07)
[2020-09-19 14:40] LABS: BASOPHILS 0.8 % (0-2); EOSINOPHILS 0 % (0-7); HEMATOCRIT 40.2 % (36.0-48.0); HEMOGLOBIN 12.9 g/dL (12-16); IMMATURE GRANULOCYTES 0.2 % (0-5); LYMPHOCYTE ABS# 1.65 10x3/uL (1.18-3.74); LYMPHOCYTES 33.6 % (15-50); MCH 28.4 pg (26.0-34.0); MCHC 32.1 g/dL (31.0-37.0); MCV 88.5 fL (80.0-100.0); MEAN PLATELET VOLUME 9.4 fL (7.4-10.4); MONOCYTES 6.5 % (2-11); NEUTROPHIL ABS# 2.89 10x3/uL (1.56-6.13); NEUTROPHILS 58.9 % (40-80); PLATELET COUNT 279 10x3/uL (130-400); RBC 4.54 10x6/uL (4.00-5.40); RDW 12.5 % (11.5-14.5); WBC 4.9 10x3/uL (4.8-10.8)
[2020-09-19 14:58] LABS: BILIRUBIN NEGATIVE (NEGATIVE); KETONE MODERATE mg/dL (NEGATIVE); NITRITE NEGATIVE (NEGATIVE); UROBILINOGEN NORMAL mg/dL (< 2)
[2020-09-19 14:59] LABS: BACTERIA FEW HPF (NONE SEEN); SQUAMOUS EPITHELIAL OCC HPF (0-4)
[2020-09-19 15:00] LABS: ALBUMIN 3.3 g/dL (3.4-5.0); ANION GAP 18.1 mmol/L (8-16); BILIRUBIN - TOTAL 0.62 mg/dL (0.2-1.3); CALCIUM 9.3 mg/dL (8.5-10.1); CARBON DIOXIDE 22.1 mmol/L (21.0-32.0); CREATININE - SERUM 1.3 mg/dL (0.6-1.3); MAGNESIUM - SERUM 1.9 mg/dL (1.8-2.4); POTASSIUM - SERUM 4.2 mmol/L (3.5-5.1); PROTEIN - SERUM 7.1 g/dL (6.4-8.2)
[2020-09-19] MEDS ORDERED: CEPHALEXIN500 M1 PO (19:32)
[2020-09-19 20:33] VITALS: BP 128/77
== END 2020-09-19 20:33 | disposition home or self-care (01) ==
LOC: D.ER 13:44
PROVIDERS: Emergency Medicine
DX: E11.65 Type 2 diabetes mellitus with hyperglycemia (principal); R10.9 Unspecified abdominal pain; N39.0 Urinary tract infection, site not specified; Z79.4 Long term (current) use of insulin

== ENCOUNTER 2020-09-27 15:25 | Inpatient (IN) | payer BC ==
[~2020-09-27] VITALS: Ht 172.7 cm; Wt 70.5 kg
[~2020-09-27 15:25] MED LIST changes: +CEPHALEXIN500 M1 PO; +NOVOLOG100 UNIT/1 SC; +TRAZODONE HCL100 MG PO
--- NOTE | 2020-09-27 16:04 | NUR ---
URINE OBTAINED AND SENT TO LAB
[2020-09-27 16:21] LABS: BILIRUBIN NEGATIVE (NEGATIVE); KETONE MODERATE mg/dL (NEGATIVE); NITRITE NEGATIVE (NEGATIVE); UROBILINOGEN NORMAL mg/dL (< 2)
[2020-09-27 16:22] LABS: SQUAMOUS EPITHELIAL OCC HPF (0-4); WHITE CELLS - URINE >50 HPF (0-4)
[2020-09-27 16:23] LABS: BACTERIA FEW HPF (NONE SEEN)
[2020-09-27 16:27] LABS: BASOPHILS 0.4 % (0-2); EOSINOPHILS 0 % (0-7); HEMATOCRIT 41.4 % (36.0-48.0); HEMOGLOBIN 13.1 g/dL (12-16); IMMATURE GRANULOCYTES 0.2 % (0-5); LYMPHOCYTE ABS# 1.48 10x3/uL (1.18-3.74); LYMPHOCYTES 30.8 % (15-50); MCHC 31.6 g/dL (31.0-37.0); MCV 88.5 fL (80.0-100.0); MEAN PLATELET VOLUME 9.2 fL (7.4-10.4); MONOCYTES 6.7 % (2-11); NEUTROPHIL ABS# 2.98 10x3/uL (1.56-6.13); NEUTROPHILS 61.9 % (40-80); PLATELET COUNT 258 10x3/uL (130-400); RBC 4.68 10x6/uL (4.00-5.40); RDW 12.8 % (11.5-14.5); WBC 4.8 10x3/uL (4.8-10.8)
[2020-09-27 16:43] LABS: CALCIUM 9.3 mg/dL (8.5-10.1); CARBON DIOXIDE 20.2 mmol/L (21.0-32.0); POTASSIUM - SERUM 4.2 mmol/L (3.5-5.1)
[2020-09-27 16:50] LABS: ALBUMIN 3.2 g/dL (3.4-5.0); BILIRUBIN - TOTAL 0.48 mg/dL (0.2-1.3); PROTEIN - SERUM 6.8 g/dL (6.4-8.2)
--- NOTE | 2020-09-27 20:04 | NUR ---
FSBS 334
[2020-09-27 20:45] VITALS: BP 124/84
--- NOTE | 2020-09-27 20:50 | NUR ---
FSBS 146
[2020-09-27 21:27] VITALS: BP 118/80; Ht 172.7 cm; Wt 70.5 kg
--- NOTE | 2020-09-27 21:57 | NUR ---
RECEIVED PT FROM ER VIA WHEELCHAIR. PT A&O X4. PIV TO RIGHT WRIST PATENT AND INFUSING, NO REDNESS OR SWELLING. C/O PAIN TO LEFT FLAK AND ABD. PT ABLE TO AMBULATE AD FRANKY. SCD'S ON, SLIP SOCKS ON. BED LOW, CL IN REACH.
[2020-09-27 23:44] LABS: APTT 22.3 SECONDS (22.8-39.4); INR 1.06 (0.85-1.17); PROTIME 12.8 SECONDS (11.6-15.0)
[2020-09-28] VITALS: BP 116/80
[2020-09-28 04:00] VITALS: BP 112/61
--- NOTE | 2020-09-28 04:15 | NUR ---
PT CHECKED OWN BS AND ASKED NURSE TO RECHECK. FSBS 435, CALLED [facility]. CHANGED SCALE TO INT. EDUCATED PT ON CHANGE, VERBALIZED UNDERSTANDING. BED LOW, CL IN REACH.
[2020-09-28 06:26] LABS: BASOPHILS 0.8 % (0-2); EOSINOPHILS 0 % (0-7); HEMATOCRIT 38.8 % (36.0-48.0); HEMOGLOBIN 12.2 g/dL (12-16); IMMATURE GRANULOCYTES 0.3 % (0-5); LYMPHOCYTE ABS# 1.55 10x3/uL (1.18-3.74); LYMPHOCYTES 43.7 % (15-50); MCH 27.9 pg (26.0-34.0); MCHC 31.4 g/dL (31.0-37.0); MCV 88.8 fL (80.0-100.0); MEAN PLATELET VOLUME 9.8 fL (7.4-10.4); MONOCYTES 8.7 % (2-11); NEUTROPHIL ABS# 1.65 10x3/uL (1.56-6.13); NEUTROPHILS 46.5 % (40-80); PLATELET COUNT 276 10x3/uL (130-400); RBC 4.37 10x6/uL (4.00-5.40); RDW 12.6 % (11.5-14.5); WBC 3.6 10x3/uL (4.8-10.8)
[2020-09-28 06:48] LABS: ALBUMIN 2.9 g/dL (3.4-5.0); ALKALINE PHOSPHATASE 148 U/L (30-120); ALT (SGPT) 41 U/L (10-68); BILIRUBIN - TOTAL 0.61 mg/dL (0.2-1.3); CALCIUM 8.6 mg/dL (8.5-10.1); CARBON DIOXIDE 23.6 mmol/L (21.0-32.0); CHLORIDE - SERUM 98 mmol/L (98-107); CREATININE - SERUM 0.8 mg/dL (0.6-1.3); MAGNESIUM - SERUM 1.8 mg/dL (1.8-2.4); POTASSIUM - SERUM 4.4 mmol/L (3.5-5.1); PROTEIN - SERUM 6.3 g/dL (6.4-8.2); SODIUM 134 mmol/L (136-145); eGFR NON AFRICAN AMERICAN > 90 mL/min (90-120)
[2020-09-28 06:51] LABS: CALC OSMOLALITY 289 mosm/kg (275-300); UREA NITROGEN 14 mg/dL (7-18)
[2020-09-28 06:52] LABS: GLUCOSE 483 mg/dL (74-106)
--- NOTE | 2020-09-28 09:07 | NUR ---
PATIENT SITTING UP IN BED, ADMINISTERED PRN MEDICATION WELL SCHEDULED MEDICATION. NO NEEDS AT THIS TIME. CONTINUE WITH PLAN OF CARE
[2020-09-28 09:12] VITALS: BP 110/72
--- NOTE | 2020-09-28 10:53 | NUR ---
RECEIVED MESSAGE TO CHECK PATIENT BLOOD SUGAR AND GET BACK WITH PHYSICIAN, BLOOD SUGAR IS 378, NOTIFIED DOCTOR FARO VERBALLY AND WILL TEXT PRODUCTION MACHINE COMPUTER OPERATOR. AWAITING LANTUS TO ADMINISTER
--- NOTE | 2020-09-28 11:17 | NUR ---
ADMINISTERED 30 OF LANTUS WELL 20 OF HUMALIN. WILL RECHECK PATIENT BLOOD SUGAR IN 30 MINUTES. CONTINUE WITH PLAN OF CARE
--- NOTE | 2020-09-28 13:06 | NUR ---
SPOKE TO Isaiah SWEET APRN REGARDING PATIENT REQUESTING A BENADRY FOR ITCHING. PATIENT SCRATCHING NOR RASH SEEN, STATES SHE DOESNT KNOW IF ITS CAUSE SHE IS HOT, OR SOMETHING SHE ATE OR THE ADHESIVE TAPE. SAYS IT JUST ITCHES BUT DOESNT FEEL LIKE HER NORMAL ALLERGIC REACTIONS. AIR TURNED DOWN IN ROOM. Isaiah SWEET APRN STATES SHE WILL PLACE AN ORDER TO ADDRESS THE ITCHING.
[2020-09-28 13:46] VITALS: BP 107/72
--- NOTE | 2020-09-28 14:47 | NUR ---
I have reviewed this patient and I concur with the Shift Assessment completed by the Licensed Practical Nurse today this shift.
[2020-09-28 17:33] VITALS: BP 108/73
[2020-09-29 06:22] LABS: HEMOGLOBIN 11.7 g/dL (12-16); LYMPHOCYTE ABS# 2.12 10x3/uL (1.18-3.74); MCH 27.9 pg (26.0-34.0); MCHC 31.6 g/dL (31.0-37.0); MCV 88.1 fL (80.0-100.0); MEAN PLATELET VOLUME 9.2 fL (7.4-10.4); NEUTROPHIL ABS# 0.99 10x3/uL (1.56-6.13); PLATELET COUNT 231 10x3/uL (130-400); RDW 12.7 % (11.5-14.5); WBC 3.4 10x3/uL (4.8-10.8)
[2020-09-29 06:33] LABS: ALBUMIN 2.6 g/dL (3.4-5.0); ALKALINE PHOSPHATASE 139 U/L (30-120); BILIRUBIN - TOTAL 0.26 mg/dL (0.2-1.3); CALCIUM 8.9 mg/dL (8.5-10.1); CHLORIDE - SERUM 104 mmol/L (98-107); CREATININE - SERUM 0.6 mg/dL (0.6-1.3); MAGNESIUM - SERUM 2.1 mg/dL (1.8-2.4); POTASSIUM - SERUM 3.8 mmol/L (3.5-5.1); SODIUM 140 mmol/L (136-145); UREA NITROGEN 12 mg/dL (7-18); eGFR NON AFRICAN AMERICAN > 90 mL/min (90-120)
[2020-09-29 06:37] LABS: CALC OSMOLALITY 276 mosm/kg (275-300); CARBON DIOXIDE 29.7 mmol/L (21.0-32.0); GLUCOSE 63 mg/dL (74-106)
[2020-09-29 06:38] LABS: ALT (SGPT) 62 U/L (10-68)
[2020-09-29 06:59] LABS: EOSINOPHILS 2 % (0-7); LYMPHOCYTES 65 % (15-50); MONOCYTES 1 % (2-11); NEUTROPHILS 24 % (40-80)
[2020-09-29 07:00] LABS: ANISOCYTOSIS OCC; PLATELET ESTIMATE NORMAL
[2020-09-29 10:42] VITALS: BP 96/57
[2020-09-29 13:29] VITALS: BP 97/65
== END 2020-09-29 15:24 | disposition home or self-care (01) | DRG 690 ==
LOC: D.ER 15:25 → D.MS 19:26 → OBSVTIME 19:26 → D.MS 19:26
PROVIDERS: Family Medicine; ADMIT Family Medicine; ATTEND Family Medicine
DX: N10 Acute pyelonephritis (principal); E10.65 Type 1 diabetes mellitus with hyperglycemia; I73.00 Raynaud's syndrome without gangrene; E03.9 Hypothyroidism, unspecified; M32.9 Systemic lupus erythematosus, unspecified; R16.0 Hepatomegaly, not elsewhere classified; G89.29 Other chronic pain; F41.9 Anxiety disorder, unspecified; N39.0 Urinary tract infection, site not specified

== ENCOUNTER 2020-10-29 08:13 | Inpatient (IN) | payer BC ==
[~2020-10-29] VITALS: Ht 172.7 cm; Wt 70.5 kg
[2020-10-29] VITALS (11 sets, daily range): BP systolic 104–145; BP diastolic 63–84; BMI 23.6
[2020-10-29 08:52] LABS: APTT 23.5 SECONDS (22.8-39.4); INR 1.24 (0.85-1.17); PROTIME 14.5 SECONDS (11.6-15.0)
[2020-10-29 08:53] LABS: BILIRUBIN NEGATIVE (NEGATIVE); KETONE LARGE mg/dL (NEGATIVE); NITRITE NEGATIVE (NEGATIVE); UROBILINOGEN NORMAL mg/dL (< 2)
[2020-10-29 08:54] LABS: BASOPHILS 0.9 % (0-2); EOSINOPHILS 0 % (0-7); HEMATOCRIT 39.9 % (36.0-48.0); HEMOGLOBIN 12.1 g/dL (12-16); LYMPHOCYTES 14.5 % (15-50); MCH 28.2 pg (26.0-34.0); MCHC 30.3 g/dL (31.0-37.0); MEAN PLATELET VOLUME 7.5 fL (7.4-10.4); MONOCYTES 7.1 % (2-11); NEUTROPHILS 77.5 % (40-80); PLATELET COUNT 252 10x3/uL (130-400); RBC 4.29 10x6/uL (4.00-5.40); RDW 14.1 % (11.5-14.5); WBC 5.5 10x3/uL (4.8-10.8)
[2020-10-29 09:06] LABS: ALBUMIN 4.3 g/dL (3.4-5.0); ALKALINE PHOSPHATASE 167 U/L (30-120); ALT (SGPT) 61 U/L (10-68); BILIRUBIN - TOTAL 1.42 mg/dL (0.2-1.3); CALCIUM 9.5 mg/dL (8.5-10.1); CHLORIDE - SERUM 88 mmol/L (98-107); CKMB 2.7 U/L (0.0-3.6); CREATINE KINASE 405 UL (21-215); CREATININE - SERUM 1.6 mg/dL (0.6-1.3); MAGNESIUM - SERUM 2.5 mg/dL (1.8-2.4); POTASSIUM - SERUM 4.7 mmol/L (3.5-5.1); PROTEIN - SERUM 8.5 g/dL (6.4-8.2); SODIUM 124 mmol/L (136-145); TROPONIN-I < 0.017 ng/mL (0.000-0.060); UREA NITROGEN 27 mg/dL (7-18); eGFR NON AFRICAN AMERICAN 41 mL/min (90-120)
[2020-10-29 09:09] LABS: CALC OSMOLALITY 300 mosm/kg (275-300)
[2020-10-29 09:20] LABS: CARBON DIOXIDE 8.3 mmol/L (21.0-32.0); GLUCOSE 919 mg/dL (74-106)
--- NOTE | 2020-10-29 10:36 | NUR ---
IGNACIO ADKINS WAS NOTIFIED OF THE SIGNIFICANT DROP IN PATIENTS BLOOD GLUCOSE TO 329. NO NEW ORDERS GIVEN BY IGNACIO ADKINS. SHE STATES TO FOLLOW DKA PROTOCOL.
[2020-10-29 17:01] LABS: CALCIUM 9.1 mg/dL (8.5-10.1); CHLORIDE - SERUM 107 mmol/L (98-107); SODIUM 142 mmol/L (136-145)
[2020-10-29 17:02] LABS: CALC OSMOLALITY 281 mosm/kg (275-300); CARBON DIOXIDE 16.3 mmol/L (21.0-32.0); CREATININE - SERUM 0.9 mg/dL (0.6-1.3); GLUCOSE 91 mg/dL (74-106); POTASSIUM - SERUM 3.8 mmol/L (3.5-5.1); UREA NITROGEN 11 mg/dL (7-18); eGFR NON AFRICAN AMERICAN 80 mL/min (90-120)
[2020-10-29 23:04] LABS: CALCIUM 8.5 mg/dL (8.5-10.1); CARBON DIOXIDE 18.6 mmol/L (21.0-32.0); CHLORIDE - SERUM 107 mmol/L (98-107); CREATININE - SERUM 0.9 mg/dL (0.6-1.3); POTASSIUM - SERUM 3.4 mmol/L (3.5-5.1); SODIUM 140 mmol/L (136-145); eGFR NON AFRICAN AMERICAN 80 mL/min (90-120)
[2020-10-29 23:14] LABS: CALC OSMOLALITY 278 mosm/kg (275-300); GLUCOSE 140 mg/dL (74-106); UREA NITROGEN 7 mg/dL (7-18)
[2020-10-30] VITALS (24 sets, daily range): BP systolic 109–128; BP diastolic 69–92; Ht 172.7 cm; Wt 70.5 kg
--- NOTE | 2020-10-30 01:10 | NUR ---
IV TO LEFT INDEX FINGER D/C'D, BLOWN WHEN FLUSHED.
--- NOTE | 2020-10-30 02:10 | NUR ---
2108- PT COMPLAINS OF PAIN. RECEIVES HOME NORCO 10/325. WASHING TUB OPERATOR CALLED AND RECEIVED ORDER TO START NORCO 10/325. FIRST DOSE GIVEN.
[2020-10-30 05:11] LABS: BASOPHILS 0.4 % (0-2); EOSINOPHILS 0.1 % (0-7); HEMOGLOBIN 10.4 g/dL (12-16); LYMPHOCYTES 43.6 % (15-50); MCH 28.7 pg (26.0-34.0); MCHC 33.7 g/dL (31.0-37.0); MEAN PLATELET VOLUME 6.9 fL (7.4-10.4); MONOCYTES 8.8 % (2-11); NEUTROPHILS 47.1 % (40-80); PLATELET COUNT 225 10x3/uL (130-400); RBC 3.62 10x6/uL (4.00-5.40); RDW 13.4 % (11.5-14.5)
[2020-10-30 05:17] LABS: ALKALINE PHOSPHATASE 105 U/L (30-120); BILIRUBIN - TOTAL 0.45 mg/dL (0.2-1.3); CALC OSMOLALITY 279 mosm/kg (275-300); CHLORIDE - SERUM 108 mmol/L (98-107); CREATININE - SERUM 0.9 mg/dL (0.6-1.3); GLUCOSE 110 mg/dL (74-106); HEMATOCRIT 30.8 % (36.0-48.0); MAGNESIUM - SERUM 1.9 mg/dL (1.8-2.4); MCV 85.2 fL (80.0-100.0); SODIUM 141 mmol/L (136-145); UREA NITROGEN 6 mg/dL (7-18); WBC 3.9 10x3/uL (4.8-10.8); eGFR NON AFRICAN AMERICAN 80 mL/min (90-120)
[2020-10-30 05:55] LABS: ALBUMIN 2.8 g/dL (3.4-5.0); ALT (SGPT) 43 U/L (10-68); CALCIUM 10.7 mg/dL (8.5-10.1); POTASSIUM - SERUM 2.8 mmol/L (3.5-5.1)
[2020-10-30 09:23] LABS: CALCIUM 8.3 mg/dL (8.5-10.1); CARBON DIOXIDE 18.4 mmol/L (21.0-32.0); CHLORIDE - SERUM 105 mmol/L (98-107); CREATININE - SERUM 0.9 mg/dL (0.6-1.3); SODIUM 138 mmol/L (136-145); UREA NITROGEN 6 mg/dL (7-18); eGFR NON AFRICAN AMERICAN 80 mL/min (90-120)
[2020-10-30 09:26] LABS: CALC OSMOLALITY 285 mosm/kg (275-300); GLUCOSE 311 mg/dL (74-106)
[2020-10-30 09:27] LABS: POTASSIUM - SERUM 2.9 mmol/L (3.5-5.1)
[2020-10-30 12:58] LABS: BILIRUBIN NEGATIVE (NEGATIVE); KETONE MODERATE mg/dL (NEGATIVE); NITRITE NEGATIVE (NEGATIVE); UROBILINOGEN NORMAL mg/dL (< 2)
[2020-10-30 13:02] LABS: BACTERIA FEW HPF (NONE SEEN); SQUAMOUS EPITHELIAL 0-5 HPF (0-4)
[2020-10-30 13:16] LABS: CALCIUM 8.7 mg/dL (8.5-10.1); CARBON DIOXIDE 21.3 mmol/L (21.0-32.0); CHLORIDE - SERUM 107 mmol/L (98-107); SODIUM 136 mmol/L (136-145); UREA NITROGEN 5 mg/dL (7-18)
[2020-10-30 13:17] LABS: CALC OSMOLALITY 269 mosm/kg (275-300); CREATININE - SERUM 0.6 mg/dL (0.6-1.3); GLUCOSE 108 mg/dL (74-106); POTASSIUM - SERUM 4.5 mmol/L (3.5-5.1); eGFR NON AFRICAN AMERICAN > 90 mL/min (90-120)
--- NOTE | 2020-10-30 15:33 | NUR ---
Dr. Mccarty notified of consult.
[2020-10-30 16:47] LABS: CALC OSMOLALITY 276 mosm/kg (275-300); CALCIUM 8.5 mg/dL (8.5-10.1); CARBON DIOXIDE 20.3 mmol/L (21.0-32.0); CHLORIDE - SERUM 108 mmol/L (98-107); CREATININE - SERUM 0.7 mg/dL (0.6-1.3); GLUCOSE 114 mg/dL (74-106); POTASSIUM - SERUM 3.9 mmol/L (3.5-5.1); SODIUM 140 mmol/L (136-145); UREA NITROGEN 4 mg/dL (7-18); eGFR NON AFRICAN AMERICAN > 90 mL/min (90-120)
[2020-10-30 20:11] LABS: CALC OSMOLALITY 275 mosm/kg (275-300); CALCIUM 8.3 mg/dL (8.5-10.1); CHLORIDE - SERUM 107 mmol/L (98-107); CREATININE - SERUM 0.6 mg/dL (0.6-1.3); GLUCOSE 120 mg/dL (74-106); POTASSIUM - SERUM 3.9 mmol/L (3.5-5.1); SODIUM 139 mmol/L (136-145); UREA NITROGEN 4 mg/dL (7-18); eGFR NON AFRICAN AMERICAN > 90 mL/min (90-120)
--- NOTE | 2020-10-30 22:16 | NUR ---
CHRISTIAN ALCANTARA PAGED FOR UNCONTROLLED PAIN
--- NOTE | 2020-10-30 22:27 | NUR ---
CHRISTAIN ROMANO CALLED BACK. SEE MED ORDERS FOR ORDER.M
[2020-10-31] VITALS (24 sets, daily range): BP systolic 101–133; BP diastolic 65–99
[2020-10-31 00:37] LABS: CALC OSMOLALITY 278 mosm/kg (275-300); CALCIUM 8.3 mg/dL (8.5-10.1); CARBON DIOXIDE 21.3 mmol/L (21.0-32.0); CHLORIDE - SERUM 109 mmol/L (98-107); CREATININE - SERUM 0.7 mg/dL (0.6-1.3); GLUCOSE 113 mg/dL (74-106); POTASSIUM - SERUM 3.7 mmol/L (3.5-5.1); SODIUM 141 mmol/L (136-145); UREA NITROGEN 3 mg/dL (7-18); eGFR NON AFRICAN AMERICAN > 90 mL/min (90-120)
[2020-10-31 05:13] LABS: BASOPHILS 0.9 % (0-2); EOSINOPHILS 0.1 % (0-7); HEMATOCRIT 32.6 % (36.0-48.0); LYMPHOCYTES 49.8 % (15-50); MCH 28.8 pg (26.0-34.0); MCHC 33.7 g/dL (31.0-37.0); MCV 85.4 fL (80.0-100.0); MEAN PLATELET VOLUME 7.2 fL (7.4-10.4); NEUTROPHILS 40.2 % (40-80); PLATELET COUNT 220 10x3/uL (130-400); RBC 3.81 10x6/uL (4.00-5.40); RDW 13.6 % (11.5-14.5); WBC 3.1 10x3/uL (4.8-10.8)
[2020-10-31 05:50] LABS: ALBUMIN 2.8 g/dL (3.4-5.0); ALKALINE PHOSPHATASE 119 U/L (30-120); BILIRUBIN - TOTAL 0.48 mg/dL (0.2-1.3); CALCIUM 8.4 mg/dL (8.5-10.1); CHLORIDE - SERUM 106 mmol/L (98-107); CREATININE - SERUM 0.7 mg/dL (0.6-1.3); GLUCOSE 110 mg/dL (74-106); MAGNESIUM - SERUM 1.7 mg/dL (1.8-2.4); POTASSIUM - SERUM 3.4 mmol/L (3.5-5.1); PROTEIN - SERUM 6.1 g/dL (6.4-8.2); SODIUM 139 mmol/L (136-145); eGFR NON AFRICAN AMERICAN > 90 mL/min (90-120)
[2020-10-31 05:56] LABS: ALT (SGPT) 64 U/L (10-68); CALC OSMOLALITY 274 mosm/kg (275-300); UREA NITROGEN 2 mg/dL (7-18)
[2020-10-31 08:39] LABS: CALC OSMOLALITY 278 mosm/kg (275-300); CALCIUM 8.4 mg/dL (8.5-10.1); CARBON DIOXIDE 21.9 mmol/L (21.0-32.0); CHLORIDE - SERUM 108 mmol/L (98-107); CREATININE - SERUM 0.7 mg/dL (0.6-1.3); GLUCOSE 150 mg/dL (74-106); PHOSPHOROUS 3.7 mg/dL (2.5-4.9); POTASSIUM - SERUM 3.5 mmol/L (3.5-5.1); SODIUM 140 mmol/L (136-145); eGFR NON AFRICAN AMERICAN > 90 mL/min (90-120)
[2020-10-31 08:40] LABS: UREA NITROGEN 3 mg/dL (7-18)
--- NOTE | 2020-10-31 23:42 | NUR ---
I have reviewed this patient and I concur with the Shift Assessment completed by the Licensed Practical Nurse today this shift.
[2020-11-01] VITALS (14 sets, daily range): BP systolic 102–132; BP diastolic 64–93
[2020-11-01 05:26] LABS: BASOPHILS 0.7 % (0-2); EOSINOPHILS 0.1 % (0-7); HEMATOCRIT 34.8 % (36.0-48.0); HEMOGLOBIN 11.5 g/dL (12-16); LYMPHOCYTES 40.6 % (15-50); MCH 28.3 pg (26.0-34.0); MCV 85.7 fL (80.0-100.0); MEAN PLATELET VOLUME 7.2 fL (7.4-10.4); MONOCYTES 10.3 % (2-11); NEUTROPHILS 48.3 % (40-80); PLATELET COUNT 240 10x3/uL (130-400); RBC 4.06 10x6/uL (4.00-5.40); RDW 13.4 % (11.5-14.5); WBC 2.8 10x3/uL (4.8-10.8)
[2020-11-01 05:50] LABS: ALBUMIN 2.9 g/dL (3.4-5.0); ALKALINE PHOSPHATASE 138 U/L (30-120); BILIRUBIN - TOTAL 0.53 mg/dL (0.2-1.3); CALCIUM 8.6 mg/dL (8.5-10.1); CARBON DIOXIDE 22.3 mmol/L (21.0-32.0); CHLORIDE - SERUM 103 mmol/L (98-107); GLUCOSE 135 mg/dL (74-106); MAGNESIUM - SERUM 1.6 mg/dL (1.8-2.4); POTASSIUM - SERUM 3.4 mmol/L (3.5-5.1); PROTEIN - SERUM 6.5 g/dL (6.4-8.2); SODIUM 137 mmol/L (136-145)
[2020-11-01 05:55] LABS: ALT (SGPT) 84 U/L (10-68); CALC OSMOLALITY 272 mosm/kg (275-300); CREATININE - SERUM 0.9 mg/dL (0.6-1.3); UREA NITROGEN 4 mg/dL (7-18); eGFR NON AFRICAN AMERICAN 80 mL/min (90-120)
--- NOTE | 2020-11-01 08:54 | NUR ---
Nutrition follow-up: Pt continues NPO C/O back, abdominal pain +BM, loose Wt: 155# Lantus started Labs reviewed; insulin drip off Recommendations: If diet unable to begin within 24 hours nutrition support must be started. For short-term use, I recommend ProcalAmine PPN @ 100 ml/hr. RDN will follow-up: 11/03/20
--- NOTE | 2020-11-01 14:52 | NUR ---
PT TO ROOM. SITUATED, ORIENTED TO ROOM AND UNIT. ALERT AND ORIENTED X4, AMBULATORY. IV TO THE RIGHT UPPER ARM, SALINE LOCKED. RESTING COMFORTABLY. DENIES ANY NEEDS AT THIS TIME. WILL CONTINUE POC.
--- NOTE | 2020-11-01 15:33 | NUR ---
REMOVED IV FROM RIGHT WRIST DUE TO INFILTRATION. CATHETER TIP INTACT, TOLERATED WELL. COVERED WITH GAUZE AND TAPE.
--- NOTE | 2020-11-01 15:42 | NUR ---
PATIENT TRANSFERRED TO MED SURG ROOM FROM ICU. ALERT AND ORIENTED. DENIES NEEDS AT THIS TIME. UP AD FRANKY. NO SKIN ISSUES NOTED. PINK, AND MOIST SKIN ALL OVER. FREE FROM SIGNS OF DISTRESS. WILL CONTINUE TO MONITOR.
--- NOTE | 2020-11-01 16:05 | NUR ---
ADMINISTERED MEDICATION, NO DIFFICULTIES. AIDE IN ROOM GETTING VITALS. DENIES ANY NEEDS. WILL CONTINUE POC.
--- NOTE | 2020-11-01 17:10 | NUR ---
NO INSULIN PER SLIDING SCALE FOR SUGAR OF 105. SITTING UPRIGHT IN BED. DENIES ANY NEEDS. WILL CONTINUE POC.
[2020-11-02] VITALS: BP 114/74
--- NOTE | 2020-11-02 03:52 | NUR ---
PATIENTS PAIN MANAGED WITH THE PRESCRIBED PAIN MEDICATION, SHE IS CURRENTLY RESTING IN BED WATCHING TV.
[2020-11-02 04:00] VITALS: BP 112/82
[2020-11-02 07:19] LABS: HEMATOCRIT 36.1 % (36.0-48.0); MCH 28.4 pg (26.0-34.0); MCHC 33.2 g/dL (31.0-37.0); MCV 85.5 fL (80.0-100.0); MEAN PLATELET VOLUME 7.4 fL (7.4-10.4); PLATELET COUNT 278 10x3/uL (130-400); RBC 4.22 10x6/uL (4.00-5.40); WBC 3.2 10x3/uL (4.8-10.8)
--- NOTE | 2020-11-02 07:42 | NUR ---
AWAKE AND ALERT. ORIENTED X3. NO C/O AT THIS TIME. LUNGS ARE CLEAR BILATERALLY, NO COUGH NOTED. SKIN IS INTACT WITHOUT REDNESS. IV TO RIGHT UPPER ARM IS PATENT WITHOUT REDNESS AT INSERTION SITE. DENIES NEEDS. FSBS 228 AT THIS TIME.
[2020-11-02 07:44] LABS: ALBUMIN 3.4 g/dL (3.4-5.0); ALKALINE PHOSPHATASE 139 U/L (30-120); ALT (SGPT) 81 U/L (10-68); BILIRUBIN - TOTAL 0.48 mg/dL (0.2-1.3); CALC OSMOLALITY 276 mosm/kg (275-300); CALCIUM 8.7 mg/dL (8.5-10.1); CARBON DIOXIDE 23.7 mmol/L (21.0-32.0); CHLORIDE - SERUM 102 mmol/L (98-107); CREATININE - SERUM 0.8 mg/dL (0.6-1.3); GLUCOSE 114 mg/dL (74-106); POTASSIUM - SERUM 4.3 mmol/L (3.5-5.1); PROTEIN - SERUM 6.8 g/dL (6.4-8.2); SODIUM 138 mmol/L (136-145); UREA NITROGEN 13 mg/dL (7-18); eGFR NON AFRICAN AMERICAN > 90 mL/min (90-120)
[2020-11-02 08:27] VITALS: BP 127/71
--- NOTE | 2020-11-02 09:00 | NUR ---
ATE MOST OF BREAKFAST. TOOK AM MEDS WITHOUT DIFFICULTY. GIVEN 8 UNTS REGULAR SUBQ FOR SS COVERAGE. DENIES NEEDS.
[2020-11-02] MEDS ORDERED: CARAFATE1 G PO (11:39)
[2020-11-02] MEDS ORDERED: FLORAJEN DIGES1 EACH PO (11:39)
[2020-11-02] MEDS ORDERED: LEVOFLOXACIN500 MG PO (11:40)
[2020-11-02] MEDS ORDERED: PROTONIX40 MG PO (11:40)
[2020-11-02 12:28] LABS: LYMPHOCYTES 57 % (15-50); MONOCYTES 5 % (2-11); NEUTROPHILS 36 % (40-80); PLATELET ESTIMATE NORMAL
[2020-11-02 12:29] LABS: ROULEAUX 1+
--- NOTE | 2020-11-02 13:23 | NUR ---
DISCHARGE ORDERS RECEIVED. DISCHARGE INSTRUCTIONS GIVEN BOTH VERBALLY AND WRITTEN. ALL QUESTIONS ANSWERED. PATIENT VERBALIZED UNDERSTANDING OF SAME. NEEDED PRESCRIPTIONS ESCRIBED TO PHARMACY OF CHOICE. WAITING ON RIDE TO D/C HOME.
--- NOTE | 2020-11-02 13:36 | NUR ---
DISCHARGED TO HOME WITH FAMILY AMBULATORY. ALL BELONGINGS WITH PATIENT.
== END 2020-11-02 13:37 | disposition home or self-care (01) | DRG 638 ==
LOC: D.ER 08:13 → D.ICU 09:06 → D.MS 11-01 14:45
PROVIDERS: Family Medicine; ADMIT Emergency Medicine; ATTEND Emergency Medicine
DX: E10.10 Type 1 diabetes mellitus with ketoacidosis without coma (principal); N17.9 Acute kidney failure, unspecified; N39.0 Urinary tract infection, site not specified; Z79.4 Long term (current) use of insulin; I73.00 Raynaud's syndrome without gangrene; E03.9 Hypothyroidism, unspecified; M32.9 Systemic lupus erythematosus, unspecified; F41.9 Anxiety disorder, unspecified; G89.29 Other chronic pain; G43.909 Migraine, unspecified, not intractable, without status migrainosus; D64.9 Anemia, unspecified; E87.6 Hypokalemia; D72.819 Decreased white blood cell count, unspecified; E86.0 Dehydration; E87.8 Other disorders of electrolyte and fluid balance, not elsewhere classified